=== PATIENT | female | born 1960 | race Two or more races ===

== ENCOUNTER 2017-04-28 02:41 | Emergency (ER) | payer OTHER ==
[~2017-04-28] VITALS: Ht 165.1 cm; Wt 59.0 kg
[2017-04-28 02:50] VITALS: BP 151/85
--- NOTE | 2017-04-28 03:34 | Emergency Room Report ---
History of Present Illness General Chief Complaint: Multiple Trauma/Fall Source: Medical Record, EMS Present Illness HPI Is a 57-year-old female with a history of CVA with left-sided weakness. Patient is normally bed bound. Patient was found on the floor. No obvious trauma. Patient any to be evaluated. Unable to get history from the patient. History is from the care home. Allergies: Coded Allergies: No Known Allergies (Unverified , 04/28/17) Patient History Past Medical History: see triage record, old chart reviewed, HTN, CVA/TIA Past Surgical History: other Pertinent Family History: none Social History: Denies: smoking Last Menstrual Period: NONE Now: No Immunizations: other Reviewed Nursing Documentation: PMH: Agreed, PSxH: Agreed Nursing Documentation-PMH Hx Hypertension: Yes - HYPERCHOLESTEROLEMIA Review of Systems Eye: Denies: blurred vision, eye pain ENT: Denies: ear pain, nose congestion, throat swelling Respiratory: Denies: cough, shortness of breath Cardiovascular: Denies: chest pain, palpitations Gastrointestinal: Denies: abdominal pain, diarrhea, nausea, vomiting Musculoskeletal: Denies: back pain, joint pain Skin: Denies: rash Neurological: Denies: headache, numbness Endocrine: Denies: increased thirst, increased urine Hematologic/Lymphatic: Denies: easy bruising All Other Systems: negative except mentioned in HPI Physical Exam Vital Signs Date Time Temp Pulse Resp B/P Pulse Ox O2 Delivery O2 Flow Rate FiO2 04/28/17 02:21 97.5 66 18 143/93 99 Room Air vitals normal Sp02 EP Interpretation: reviewed, normal General Appearance: well appearing, no apparent distress, alert Head: normocephalic, atraumatic Eyes: bilateral eye EOMI, bilateral eye PERRL ENT: hearing grossly normal, normal pharynx Neck: full range of motion, supple, no meningismus Respiratory: chest non-tender, lungs clear, normal breath sounds Cardiovascular #1: regular rate, rhythm, no murmur Gastrointestinal: normal bowel sounds, non tender, no mass, no organomegaly, no bruit, non-distended Musculoskeletal: back normal Neurologic: other - Left-sided wekness Psychiatric: mood/affect normal Skin: warm/dry Medical Decision Making Diagnostic Impression: Primary Impression: Fall Qualified Codes: W19.XXXA - Unspecified fall, initial encounter ER Course Patient with a fall. No trauma. CT negative. We'll discharge home. CT/MRI/US Diagnostic Results CT/MRI/US Diagnostic Results : Imaging Test Ordered: CT head Impression read by radiologist. Negative. Last Vital Signs Date Time Temp Pulse Resp B/P Pulse Ox O2 Delivery O2 Flow Rate FiO2 04/28/17 02:21 97.5 66 18 143/93 99 Room Air Status: improved Disposition: ER SNF Condition: Stable Additional Instructions: Fall precautions. Followup with your Dr. in 7 days. Return if worse. JOE HOLDEN M.D. Apr 28, 2017 03:34
--- NOTE | 2017-04-28 04:17 | Emergency Room Report ---
Physical Exam Vital Signs Date Time Temp Pulse Resp B/P Pulse Ox O2 Delivery O2 Flow Rate FiO2 04/28/17 02:21 97.5 66 18 143/93 99 Room Air Sp02 EP Interpretation: reviewed, normal General Appearance: well appearing, no apparent distress, alert Head: normocephalic, atraumatic Eyes: bilateral eye EOMI, bilateral eye PERRL ENT: hearing grossly normal, normal pharynx Neck: full range of motion, supple, no meningismus Respiratory: chest non-tender, lungs clear, normal breath sounds Cardiovascular #1: regular rate, rhythm, no murmur Gastrointestinal: normal bowel sounds, non tender, no mass, no organomegaly, no bruit, non-distended Musculoskeletal: back normal, other - Left-sided weakness Neurologic: alert Psychiatric: mood/affect normal Skin: warm/dry Medical Decision Making Diagnostic Impression: Primary Impression: Fall Qualified Codes: W19.XXXA - Unspecified fall, initial encounter Additional Impression: CVA (cerebral vascular accident) Qualified Codes: I63.9 - Cerebral infarction, unspecified ER Course Patient with a fall. CT scan showed multiple chronic appearing infarcts. There is some that are questionable subacute per radiologist. Labs unremarkable. Patient was just admitted to skilled nursing for infarcts. This may be secondary to seizure disorder also. I will make the patient for further workup and MRI. no TPA for patient because symptoms questionable. Also way outside of the 4.5 hours. For TPA. Lab Results Impression labs unremarkable EKG Diagnostic Results EKG Time: 04:15 Rate: normal Rhythm: NSR ST Segments: no acute changes Rhythm Strip Diag. Results Rhythm Strip Time: 04:15 EP Interpretation: yes Rate: 85 Rhythm: NSR, no PVC's, no ectopy Chest X-Ray Diagnostic Results Chest X-Ray Ordered: Yes # of Views/Limited/Complete: 1 View EP Interpretation: Yes Interpretation: no consolidation, no effusion, no pneumothorax, no acute cardiopulmonary disease Indication: Shortness of Breath Impression: No acute disease Interpreting ER Provider: Electronically signed by Grayson Chavez MD CT/MRI/US Diagnostic Results CT/MRI/US Diagnostic Results : Imaging Test Ordered: CT head Impression Read by radiologist. Grossly no bleed. Subacute/chronic appearing multifocal infarct. Last Vital Signs Date Time Temp Pulse Resp B/P Pulse Ox O2 Delivery O2 Flow Rate FiO2 04/28/17 02:21 97.5 66 18 143/93 99 Room Air Status: unchanged Disposition: XFER SHT-TRM HOSP Condition: Stable Referrals: [facility],REFERR[facility] (PCP) Patient Instructions: Fall Prevention in Hospitals, Adult Additional Instructions: Fall precautions. Followup with your Dr. in 7 days. Return if worse. GRAYSON CHAVEZ M.D. Apr 28, 2017 04:17
[2017-04-28 05:00] VITALS: BP 158/85
[2017-04-28 06:30] VITALS: BP 162/90
[2017-04-28 06:59] LABS: ALANINE AMINOTRANSFERASE 9 U/L (3-33); ALBUMIN/GLOBULIN RATIO 0.8 (1.0-2.7); ANION GAP 14 (5-15); ASPARTATE AMINO TRANSFERASE 19 U/L (5-40); BASOPHILS % (AUTO) 0.8 % (0.0-2.0); CALCIUM 9.7 mg/dL (8.6-10.2); CARBON DIOXIDE 23 mEQ/L (20-30); CHLORIDE 101 mEQ/L (98-107); CHOLESTEROL 173 mg/dL (< 200); CHOLESTEROL/HDL RATIO 3.5 (3.3-4.4); CREATININE 0.8 mg/dL (0.5-0.9); EOSINOPHILS % (AUTO) 2.2 % (0.0-3.0); GLOMERULAR FILTRATION RATE > 60 mL/min (>60); HEMOLYSIS 0; LDL CHOLESTEROL (CALC.) 106 mg/dL (60-99); LYMPHOCYTES % (AUTO) 20.7 % (20.0-45.0); MEAN CORPUSCULAR HEMOGLOBIN 27.4 PG (27.0-31.0); MEAN CORPUSCULAR HGB CONC 30.9 G/DL (32.0-36.0); MEAN CORPUSCULAR VOLUME 89 FL (80-99); MEAN PLATELET VOLUME 6.3 FL (6.5-10.1); MONOCYTES % (AUTO) 5.2 % (1.0-10.0); NEUTROPHILS % (AUTO) 71.1 % (45.0-75.0); PLATELET COUNT 326 K/UL (150-450); RED BLOOD COUNT 3.75 M/UL (4.20-5.40); RED CELL DISTRIBUTION WIDTH 13.7 % (11.6-14.8); SODIUM 138 mEQ/L (135-145); WHITE BLOOD COUNT 8.1 K/UL (4.8-10.8)
[2017-04-28 07:06] LABS: PROTHROMBIN TIME 10.7 SEC (9.30-11.50)
[2017-04-28 07:09] VITALS: BP 130/86
--- NOTE | 2017-04-28 08:33 | Diagnostic Imaging Report ---
Indication: Jason breath Technique: Single AP view of the chest. Findings: Comparison: None. Is suggestion of small linear density in one or more small calcified nodular densities in the left lung apex. Right lung clear. The bones and extra pulmonary soft tissues, cardiomediastinal silhouette, pulmonary vasculature, and pleural surfaces are unremarkable. IMPRESSION: Suggestion of parenchymal scarring and calcified granulomas left lung apex Otherwise negative.
--- NOTE | 2017-04-28 08:41 | Diagnostic Imaging Report ---
Indications: Head trauma, altered level of consciousness Technique: Continuous helical CT imaging of the brain was performed with automatic exposure control on a Siemens sensation [address] scanner. Axial and coronal images were reconstructed at 5 mm slice thickness and interval. CTDI volume(s): 70 mGy Total DLP: 1435 mGy-cm Findings: Comparison: None Images degraded by motion. Mild low attenuation is present in the bilateral periventricular white matter. Multiple peripherally based foci of low attenuation/parenchymal loss are present, including both cerebellar hemispheres right greater than left, left temporal occipital junction region, high lateral aspect left parietal lobe, high posterior lateral aspect right parietal lobe. Small circumscribed focus of low attenuation/parenchymal loss right thalamus. Ventricles, cisterns, and sulci are diffusely prominent. No evidence of mass or hemorrhage, mass effect, midline shift, hydrocephalus, or increased intracranial pressure. Bone window images are unremarkable. Visualized paranasal sinuses and mastoid air cells are clear. IMPRESSION: No evidence of acute injury or other acute intracranial pathology Multiple old infarcts versus chronic encephalomalacia from prior insults. Chronic microvascular ischemic changes bilateral cerebral periventricular white matter. Atrophy, prominent for age This correlates with preliminary report generated overnight by [employer]. The CT scanner at [facility] is accredited by the [employer] and the scans are performed using protocols designed to limit radiation exposure to as low as reasonably achievable to attain images of sufficient resolution adequate for diagnostic evaluation.
[2017-04-28 08:51] VITALS: BP 143/85
[2017-04-28 09:16] VITALS: BP 150/85
== END 2017-04-28 09:20 | disposition short-term general hospital (02) ==
LOC: EDBD 02:41 → EMR 03:49 → EDBEDREQ 04:15 → EMR 09:20
DX: I63.9 Cerebral infarction, unspecified (principal); I69.354 Hemiplegia and hemiparesis following cerebral infarction affecting left non-dominant side; I10 Essential (primary) hypertension; W19.XXXA Unspecified fall, initial encounter; Y92.129 Unspecified place in nursing home as the place of occurrence of the external cause; G31.9 Degenerative disease of nervous system, unspecified; Z74.01 Bed confinement status
CPT/HCPCS: 36415; 70450; 71010; 80053; 80061; 85025; 85610; 85730; 93005

== ENCOUNTER 2017-05-19 11:29 | Emergency (ER) | payer OTHER ==
[~2017-05-19] VITALS: Ht 165.1 cm; Wt 59.0 kg
[2017-05-19 12:18] VITALS: BP 153/90
[2017-05-19] MEDS ORDERED: LORazepam Inj 2mg/ml 1ml ONE (13:36)
[2017-05-19] MEDS ORDERED: LORazepam Inj 2mg/ml 1ml IM ONE (13:45)
[2017-05-19 14:10] VITALS: BP 148/88
[2017-05-19 14:11] VITALS: BP 148/88
--- NOTE | 2017-05-19 15:24 | Emergency Room Report ---
History of Present Illness General Chief Complaint: General Complaint Present Illness HPI 57-year-old female presents to ED for G-tube placement. Patient pulled of G- tube at [facility] today. Nursing staff placed a La catheter in the G- tube site. Patient upon arrival showing no signs of distress. No nausea or vomiting. No other aggravating or leading factors. Denies any other associated symptoms Allergies: Coded Allergies: No Known Allergies (Unverified , 04/28/17) Patient History Past Medical History: HTN, CVA/TIA Past Surgical History: other - gtube Pertinent Family History: none Social History: Denies: alcohol use, drug use, smoking Now: No Immunizations: UTD Reviewed Nursing Documentation: PMH: Agreed, PSxH: Agreed Nursing Documentation-PMH Hx Cardiac Problems: Yes Hx Hypertension: Yes Hx Cerebrovascular Accident: Yes Review of Systems All Other Systems: negative except mentioned in HPI Physical Exam Vital Signs Date Time Temp Pulse Resp B/P Pulse Ox O2 Delivery O2 Flow Rate FiO2 05/19/17 11:21 97.9 67 16 135/80 98 Room Air Sp02 EP Interpretation: reviewed, normal General Appearance: no apparent distress, alert, GCS 15, non-toxic Head: normocephalic Eyes: bilateral eye PERRL, bilateral eye normal inspection ENT: normal ENT inspection Neck: normal inspection Respiratory: chest non-tender, lungs clear, normal breath sounds, speaking full sentences Cardiovascular #1: regular rate, rhythm, no edema Gastrointestinal: normal bowel sounds, non tender, soft, non-distended, no guarding, no rebound, other - Gtube site C/D/I Rectal: deferred Genitourinary: no CVA tenderness Musculoskeletal: normal inspection Neurologic: alert, oriented x3, responsive, motor strength/tone normal, sensory intact, speech normal Psychiatric: normal inspection Skin: normal inspection Lymphatic: normal inspection Procedures Additional Procedure Procedure Narrative G-tube placement Patient placed on stretcher. Old G-tube is removed by deflating the balloon using syringe. G-tube site is inspected with no contraindications to G-tube placement. 18 F G-tube slowly inserted until resistance is met; G-tube balloon is slowly filled with 20 mL of normal saline and slowly retracted back until resistance is met. G-tube placement is confirmed with KUB study using Gastrografin Medical Decision Making Diagnostic Impression: Primary Impression: Malfunction of percutaneous endoscopic gastrostomy (PEG) tube ER Course Hospital Course 57-year-old female presents to ED for G-tube placement. Pulled out G-tube at [facility] Clinical course Patient placed on stretcher. After initial history and physical I replaced G- tube and inflate the balloon. G-tube placement confirmed with KUB study. Patient remained stable without any signs of distress. snf called and patient subsequently discharged back to facility. Dr Dalton made aware that G-tube was successfully replaced and patient return to facility Diagnosis - malfunction of G tube stable and discharged back to facility. Followup with PMD. Return to ED if symptoms recur or worsen Other X-Ray Diagnostic Results Other X-Ray Diagnostic Results : X-Ray ordered: KUB # of Views/Limited Vs Complete: 1 View Indication: Other - gtube placement EP Interpretation: Yes Interpretation: nonspecific bowel gas, no sbo, other - gtube in place. no extravsation Impression: Other - gtube in palce Interpreting ER Provider: Electronically signed by Hosea Pineda MD Last Vital Signs Date Time Temp Pulse Resp B/P Pulse Ox O2 Delivery O2 Flow Rate FiO2 05/19/17 14:11 98.1 71 19 148/88 99 Room Air Status: improved Disposition: XFER SNF Condition: Stable Patient Instructions: Gastrostomy Tube Replacement, Care After HOSEA PINEDA M.D. May 19, 2017 15:24
--- NOTE | 2017-05-20 08:37 | Diagnostic Imaging Report ---
TECHNIQUE: Frontal supine radiograph of the abdomen after administration of water-soluble contrast through the existing G-tube to evaluate positioning. COMPARISON: No prior study is available for comparison. FINDINGS: Contrast is seen within the stomach. There is no evidence of extraluminal contrast. Gastrostomy tube noted in the left upper abdomen. There is no bowel gas dilatation to suggest obstruction. Large amount of retained stool is noted throughout the colon. IMPRESSION: 1. Gastrostomy tube is in the appropriate position. No evidence of extraluminal contrast extravasation. 2. Large amount of retained colonic stool reflecting constipation.
== END 2017-05-19 14:16 ==
LOC: EDBD 11:29 → EMR 11:43
DX: K94.23 Gastrostomy malfunction (principal); I10 Essential (primary) hypertension; Z86.73 Personal history of transient ischemic attack (TIA), and cerebral infarction without residual deficits
CPT/HCPCS: 43760; 74000; 96372; 99284; Q9963

== ENCOUNTER 2017-05-29 23:40 | Emergency (ER) | payer OTHER ==
[~2017-05-29] VITALS: Ht 172.7 cm; Wt 58.5 kg
[2017-05-29] MEDS ORDERED: TRAMADOL HCL50 MG ORAL (23:58)
[2017-05-29] MEDS ORDERED: LEVETIRACE100 MG/1 M GT (23:58)
[2017-05-29] MEDS ORDERED: SENNA S TABLET1 EAC1 PO (23:58)
[2017-05-29] MEDS ORDERED: QUETIAPINE FUMA25 MG ORAL (23:58)
[2017-05-29] MEDS ORDERED: ZOFRAN4 M3 ORAL (23:58)
[2017-05-29] MEDS ORDERED: ATORVASTATIN CA20 MG ORAL (23:58)
[2017-05-29] MEDS ORDERED: ATIVAN1 MG ORAL (23:58)
[2017-05-29] MEDS ORDERED: MULTIVITAMINS1 EAC8 ORAL (23:58)
[2017-05-29] MEDS ORDERED: ACETAMINOPHEN325 M1 ORAL (23:58)
[2017-05-30 01:22] LABS: APPEARANCE,URINE SLIGHTLY CLOUDY; KETONES,URINE NEGATIVE (NEGATIVE); LEUKOCYTE ESTERASE ,URINE 3+ (NEGATIVE); NITRITE,URINE NEGATIVE (NEGATIVE); PH,URINE 9 (4.5-8.0); PROTEIN,URINE 2+ (NEGATIVE); UROBILINOGEN,URINE NORMAL MG/DL (0.0-1.0)
[2017-05-30 01:45] LABS: PROTHROMBIN TIME 10.1 SEC (9.30-11.50)
[2017-05-30 01:46] LABS: EOSINOPHILS % (AUTO) 0.8 % (0.0-3.0); LYMPHOCYTES % (AUTO) 13.9 % (20.0-45.0); MEAN CORPUSCULAR HGB CONC 30.1 G/DL (32.0-36.0); MEAN CORPUSCULAR VOLUME 83 FL (80-99); MEAN PLATELET VOLUME 6.4 FL (6.5-10.1); MONOCYTES % (AUTO) 5.2 % (1.0-10.0); NEUTROPHILS % (AUTO) 79.2 % (45.0-75.0); PLATELET COUNT 506 K/UL (150-450); RED BLOOD COUNT 3.49 M/UL (4.20-5.40); RED CELL DISTRIBUTION WIDTH 14.4 % (11.6-14.8); WHITE BLOOD COUNT 9.8 K/UL (4.8-10.8)
[2017-05-30 01:47] LABS: AMMONIA 19 umol/L (11-51)
[2017-05-30 01:48] LABS: TROPONIN I < 0.30 ng/mL (<=0.30)
[2017-05-30 01:51] LABS: BACTERIA,URINE MODERATE /HPF; SQUAMOUS EPITHELIAL CELL,UR FEW /LPF (NONE/OCC)
[2017-05-30 01:52] LABS: AMORPHOUS SEDIMENT,UR MODERATE /LPF
[2017-05-30 01:55] LABS: ACETAMINOPHEN < 10 ug/mL (10-30); ALANINE AMINOTRANSFERASE 10 U/L (3-33); ALBUMIN/GLOBULIN RATIO 0.9 (1.0-2.7); ANION GAP 10 (5-15); ASPARTATE AMINO TRANSFERASE 20 U/L (5-40); CALCIUM 9.9 mg/dL (8.6-10.2); CARBON DIOXIDE 30 mEQ/L (20-30); CHLORIDE 102 mEQ/L (98-107); CREATININE 0.8 mg/dL (0.5-0.9); GLOMERULAR FILTRATION RATE > 60 mL/min (>60); HEMOLYSIS 4; POTASSIUM 4.2 mEQ/L (3.4-4.9); SODIUM 142 mEQ/L (135-145)
[2017-05-30] MEDS ORDERED: cefTRIAXone 1 GM in NS 55 ML IVPB ONE (02:00)
--- NOTE | 2017-05-30 02:17 | Emergency Room Report ---
History of Present Illness General Chief Complaint: Altered Mental Status Source: EMS Present Illness HPI Patient presents with decreased level of mentation. Her baseline is a [place] Coma Scale of 12. 2 sent in by the residential facility. She is unable to communicate because of prior strokes. She does look it the patient is talking to her but doesn't seem to comprehend. The patient is fed via gastrostomy tube. There is a history of breast CA. The patient has a history of seizures. She's on Keppra 500 g twice a day. There's no evidence of having seizure earlier today according to reports. She was seen post fall 04/28/17 but not admitted. 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 Review of Systems All Other Systems: limited Physical Exam Vital Signs Date Time Temp Pulse Resp B/P Pulse Ox O2 Delivery O2 Flow Rate FiO2 05/29/17 23:40 97.9 80 18 148/84 100 Room Air Sp02 EP Interpretation: reviewed, normal General Appearance: no apparent distress, Chronically Ill Head: normocephalic Eyes: bilateral eye PERRL ENT: moist mucus membranes Neck: supple Respiratory: chest non-tender, lungs clear, normal breath sounds Cardiovascular #1: regular rate, rhythm Cardiovascular #2: 2+ radial (R) Gastrointestinal: normal bowel sounds, other - g tube Genitourinary: other - mcgowan Musculoskeletal: other - some atrophy bilat Neurologic: responsive, sensory intact, aphasia, motor weakness - R sided, Babinski, other - some cogwheeling, L side. Able to lift arm with greater strength than R - facial assymmetry Psychiatric: other - occasionally smiles when spoken to Reflexes: 4+ knee (R), 2+ knee (L) Skin: normal inspection, warm/dry Medical Decision Making Diagnostic Impression: Primary Impression: Altered mental status Qualified Codes: R41.82 - Altered mental status, unspecified Additional Impressions: UTI (urinary tract infection) Qualified Codes: N30.00 - Acute cystitis without hematuria Status post multiple strokes Hypothyroid Qualified Codes: E03.9 - Hypothyroidism, unspecified ER Course Patient presents with altered mental status. She has obvious signs of prior strokes. This is a complicated patient. Differential includes new stroke, bleed, mass, electrolyte abnormalities, UTI, other occult infection, seizure amongst others. Exam is also consistent with early Parkinson's (superimposed on strokes.) Evaluation will be with EKG, labs, chest x-ray, CT of the head. The patient will be given gentle IV hydration at this time. She does not appear septic or toxic. Unfortunately there were no prior records (except prior visit) aside from what the residential facility sent with the patient. Labs are significant for UTI, elevated TSH. CT head shows multiple infarcts. There is no evidence of an acute injury however if they're suspicion of this an MRI is suggested a. The patient was given IV antibiotics. A some the patient's fluctuating mental status the patient is treated for observation to telemetry bed. Discussed with Dr. Rojas who accepts patient. Laboratory Tests Test 05/30/17 00:11 05/30/17 00:57 Prothrombin Time 10.1 SEC (9.30-11.50) Prothrombin Time INR 1.0 (0.9-1.1) PTT 24 SEC (23-33) White Blood Count 9.8 K/UL (4.8-10.8) Red Blood Count 3.49 M/UL (4.20-5.40) L Hemoglobin 8.7 G/DL (12.0-16.0) L Hematocrit 29.0 % (37.0-47.0) L Mean Corpuscular Volume 83 FL (80-99) Mean Corpuscular Hemoglobin 25.0 PG (27.0-31.0) L Mean Corpuscular Hemoglobin Concent 30.1 G/DL (32.0-36.0) L Red Cell Distribution Width 14.4 % (11.6-14.8) Platelet Count 506 K/UL (150-450) H Mean Platelet Volume 6.4 FL (6.5-10.1) L Neutrophils (%) (Auto) 79.2 % (45.0-75.0) H Lymphocytes (%) (Auto) 13.9 % (20.0-45.0) L Monocytes (%) (Auto) 5.2 % (1.0-10.0) Eosinophils (%) (Auto) 0.8 % (0.0-3.0) Basophils (%) (Auto) 1.0 % (0.0-2.0) Urine Color Pale yellow Urine Appearance Slightly cloudy Urine pH 9 (4.5-8.0) Urine Specific [place] 1.015 (1.005-1.035) Urine Protein 2+ (NEGATIVE) H Urine Glucose (UA) Negative (NEGATIVE) Urine Ketones Negative (NEGATIVE) Urine Occult Blood 4+ (NEGATIVE) H Urine Nitrite Negative (NEGATIVE) Urine Bilirubin Negative (NEGATIVE) Urine Urobilinogen Normal MG/DL (0.0-1.0) Urine Leukocyte Esterase 3+ (NEGATIVE) H Urine RBC 5-10 /HPF (0 - 2) H Urine WBC 10-15 /HPF (0 - 2) H Urine Squamous Epithelial Cells Few /LPF (NONE/OCC) Urine Amorphous Sediment Moderate /LPF (NONE) H Urine Bacteria Moderate /HPF (NONE) H Sodium Level 142 mEQ/L (135-145) Potassium Level 4.2 mEQ/L (3.4-4.9) Chloride Level 102 mEQ/L (98-107) Carbon Dioxide Level 30 mEQ/L (20-30) Anion Gap 10 (5-15) Blood Urea Nitrogen 20 mg/dL (7-23) Creatinine 0.8 mg/dL (0.5-0.9) Estimate Glomerular Filtration Rate > 60 mL/min (>60) Glucose Level 100 mg/dL (74-106) Lactic Acid Level 1.70 mmol/L (0.66-2.22) Calcium Level 9.9 mg/dL (8.6-10.2) Total Bilirubin < 0.2 mg/dL (0.0-1.2) Aspartate Amino Transferase (AST) 20 U/L (5-40) Alanine Aminotransferase (ALT) 10 U/L (3-33) Alkaline Phosphatase 104 U/L (35-104) Ammonia 19 umol/L (11-51) Total Creatine Kinase 124 U/L (26-140) Troponin I < 0.30 ng/mL (<=0.30) Pro-B-Type Natriuretic Peptide 382 pg/mL (0-125) H Total Protein 8.0 g/dL (6.6-8.7) Albumin 3.8 g/dL (3.5-5.2) Globulin 4.2 g/dL Albumin/Globulin Ratio 0.9 (1.0-2.7) L Thyroid Stimulating Hormone (TSH) 5.050 uIU/mL (0.300-4.500) Salicylates Level < 1 mg/dL (10-30) L Urine Opiates Screen Negative (NEGATIVE) Acetaminophen Level < 10 ug/mL (10-30) L Urine Barbiturates Screen Negative (NEGATIVE) Phencyclidine (PCP) Screen Negative (NEGATIVE) Urine Amphetamines Screen Negative (NEGATIVE) Urine Benzodiazepines Screen Negative (NEGATIVE) Urine Cocaine Screen Negative (NEGATIVE) Urine Marijuana (THC) Screen Negative (NEGATIVE) EKG Diagnostic Results Rate: normal Rhythm: NSR ST Segments: no acute changes - Short NM Rhythm Strip Diag. Results EP Interpretation: yes Rhythm: NSR, no PVC's, no ectopy Chest X-Ray Diagnostic Results Chest X-Ray Diagnostic Results : Chest X-Ray Ordered: Yes # of Views/Limited/Complete: 1 View Indication: Other EP Interpretation: Yes Interpretation: no consolidation, no effusion, no pneumothorax, no acute cardiopulmonary disease, other - atelectasis L base Impression: No acute disease Interpreting ER Provider: Electronic signature Lonnie Delgado MD CT/MRI/US Diagnostic Results CT/MRI/US Diagnostic Results : Imaging Test Ordered: head Impression Impression: Multiple old infarcts Other chronic and age-related changes, as described Negative for acute intracranial bleed or mass effect Last Vital Signs Date Time Temp Pulse Resp B/P Pulse Ox O2 Delivery O2 Flow Rate FiO2 05/30/17 04:30 99.9 78 14 110/74 100 Room Air Status: improved Disposition: XFER SHT-TRM HOSP Condition: Improved Referrals: JANIS DYKES (PCP) Lonnie Delgado M.D. May 30, 2017 02:17
[2017-05-30 02:36] VITALS: BP 148/91
[2017-05-30 03:19] VITALS: BP 110/74
[2017-05-30 04:30] VITALS: BP 110/74
--- NOTE | 2017-05-30 09:45 | Diagnostic Imaging Report ---
Indications: Altered mental status Technique: Spiral acquisitions obtained through the brain. Angled axial and coronal 5 x 5 mm slices were reconstructed. Total dose length product 1533 mGycm. CTDI vol(s) 70 mGy. Dose reduction achieved using automated exposure control Comparison: 04/28/2017 Findings: There is an old left posterior frontal/anterior parietal infarct. There is also an old left mid parietal cortical infarct, a high midline left frontal cortical infarct, an anterior midline left frontal cortical infarct, old left anterior periventricular infarct, and old peripheral infarcts in the right parietal lobe. Cortical infarct in the left posterior temporal lobe is again noted. A lacunar infarct in the right thalamus is again demonstrated. There is also encephalomalacia of the right cerebellar hemisphere consistent with old infarct. There is age-related enlargement of ventricles and extra-axial CSF spaces and extensive periventricular deep white matter chronic ischemic change. No acute hemorrhage or edema. No mass effect nor midline shift. Normal alonso-white differentiation otherwise. The calvarium is intact. Visualized orbits and sinuses are unremarkable. Impression: Multiple old infarcts Other chronic and age-related changes, as described Negative for acute intracranial bleed or mass effect The CT scanner at [facility] [place] is accredited by the [employer] and the scans are performed using protocols designed to limit radiation exposure to as low as reasonably achievable to attain images of sufficient resolution adequate for diagnostic evaluation.
--- NOTE | 2017-05-30 16:03 | Cardiology Report ---
APPROVED REPORT EKG Measurement Heart [id number] Sinus rhythm with short MN Otherwise normal ECG
--- NOTE | 2017-06-04 14:29 | Diagnostic Imaging Report ---
Indication: Chest pain Technique: One view of the chest Comparison: 04/28/2017 Findings: The patient is rotated to the left. Lungs and pleural spaces are clear. Heart size is normal. There is no significant interim change Impression: No acute process This agrees with the preliminary interpretation provided by the emergency room physician
== END 2017-05-30 04:30 | disposition short-term general hospital (02) ==
LOC: EDBD 23:40 → EMR 23:56
DX: R41.82 Altered mental status, unspecified (principal); N30.00 Acute cystitis without hematuria; E03.9 Hypothyroidism, unspecified; Z86.73 Personal history of transient ischemic attack (TIA), and cerebral infarction without residual deficits; Z80.3 Family history of malignant neoplasm of breast; Z93.1 Gastrostomy status
CPT/HCPCS: 36415; 70450; 71010; 80053; 80300; 80329; 81003; 82140; 82550; 83605; 83880; 84443; 84484; 85025; 85610; 85730; 87040; 87086; 87181; 93005; 96374; 96375; 99285; J0696

== ENCOUNTER 2017-07-31 19:07 | Inpatient (IN) | payer OTHER ==
[~2017-07-31] VITALS: Ht 172.7 cm; Wt 56.7 kg
[~2017-07-31 19:07] MED LIST: ACETAMINOPHEN325 M1 ORAL; ATIVAN1 MG ORAL; ATORVASTATIN CA20 MG ORAL; LEVETIRACE100 MG/1 M GT; MULTIVITAMINS1 EAC8 ORAL; QUETIAPINE FUMA25 MG ORAL; SENNA S TABLET1 EAC1 PO; TRAMADOL HCL50 MG ORAL; ZOFRAN4 M3 ORAL
[2017-07-31 20:30] VITALS: BP 127/81
[2017-07-31 21:06] LABS: APPEARANCE,URINE SLIGHTLY CLOUDY; KETONES,URINE NEGATIVE (NEGATIVE); LEUKOCYTE ESTERASE ,URINE 3+ (NEGATIVE); NITRITE,URINE POSITIVE (NEGATIVE); PH,URINE 8 (4.5-8.0); PROTEIN,URINE NEGATIVE (NEGATIVE); UROBILINOGEN,URINE NORMAL MG/DL (0.0-1.0)
[2017-07-31] MEDS ORDERED: cefTRIAXone 1 GM in NS 55 ML IVPB ONE (21:15)
[2017-07-31 21:17] LABS: BACTERIA,URINE FEW /HPF
--- NOTE | 2017-07-31 21:24 | Emergency Room Report ---
History of Present Illness General Chief Complaint: Pain Source: Medical Record Present Illness HPI Patient presents with complaints of increased abdominal pain fairly diffuse Patient herself has limited ability to provide history Patient has history of ovarian cancer Unknown regarding metastatic disease However upon arrival the patient was reported to have received pain medicine and appears somewhat disoriented and confused No reports of any obvious fevers Allergies: Coded Allergies: No Known Allergies (Unverified , 04/28/17) Patient History Limited by: medical condition Past Medical History: see triage record Pertinent Family History: unable to obtain Reviewed Nursing Documentation: PMH: Agreed, PSxH: Agreed Nursing Documentation-PMH Hx Cardiac Problems: Yes - NSTEMI Hx Hypertension: Yes Hx Cancer: Yes - Left ovary Hx Gastrointestinal Problems: Yes - G-tube; Reflux History Of Psychiatric Problem: Yes - Major depressive disorder; Anxiety disorder 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 Hx Seizures: Yes Review of Systems All Other Systems: limited - Other than the ones mentioned in the history of present illness all others are reviewed however they do stay limited due to the patient's mental status Physical Exam Vital Signs Date Time Temp Pulse Resp B/P (MAP) Pulse Ox O2 Delivery O2 Flow Rate FiO2 07/31/17 19:02 60 16 143/82 98 Room Air Sp02 EP Interpretation: reviewed, normal General Appearance: mild distress - appears uncomfortable Head: normocephalic, atraumatic Eyes: bilateral eye PERRL, bilateral eye EOMI ENT: dry mucus membranes Neck: supple Respiratory: crackles - bilaterally Cardiovascular #1: regular rate, rhythm, no edema Gastrointestinal: non tender, soft Genitourinary: no CVA tenderness Musculoskeletal: other - Patient appears somewhat contracted does not follow commands appears thin and frail Neurologic: responsive - Patient moves towards physical stimuli, opens eyes however was not verbal with us Skin: other - decubitus ulcers Lymphatic: no adenopathy Medical Decision Making Diagnostic Impression: Primary Impression: UTI (urinary tract infection) Additional Impression: Abdominal pain ER Course With the history exam and presentation, multiple differentials considered, including but not limited to appendicitis, gastritis, cholecystitis, diverticulitis Patient had off-and-on intractable pain Urine sample at this time does show infectious pathology and patient was provided with antibiotics at this time requires admission for further care Labs Test 07/31/17 20:15 07/31/17 21:15 08/01/17 07:50 08/02/17 05:20 Urine Color Pale yellow Urine Appearance Slightly cloudy Urine pH 8 (4.5-8.0) Urine Specific [place] 1.010 (1.005-1.035) Urine Protein Negative (NEGATIVE) Urine Glucose (UA) Negative (NEGATIVE) Urine Ketones Negative (NEGATIVE) Urine Occult Blood 3+ (NEGATIVE) Urine Nitrite Positive (NEGATIVE) Urine Bilirubin Negative (NEGATIVE) Urine Urobilinogen Normal MG/DL (0.0-1.0) Urine Leukocyte Esterase 3+ (NEGATIVE) Urine RBC 5-10 /HPF (0 - 2) Urine WBC 10-15 /HPF (0 - 2) Urine Squamous Epithelial Cells None /LPF (NONE/OCC) Urine Bacteria Few /HPF (NONE) White Blood Count 5.9 K/UL (4.8-10.8) 6.1 K/UL (4.8-10.8) 4.4 K/UL (4.8-10.8) Red Blood Count 4.94 M/UL (4.20-5.40) 4.78 M/UL (4.20-5.40) 4.60 M/UL (4.20-5.40) Hemoglobin 12.3 G/DL (12.0-16.0) 12.1 G/DL (12.0-16.0) 11.8 G/DL (12.0-16.0) Hematocrit 42.3 % (37.0-47.0) 40.2 % (37.0-47.0) 38.9 % (37.0-47.0) Mean Corpuscular Volume 86 FL (80-99) 84 FL (80-99) 84 FL (80-99) Mean Corpuscular Hemoglobin 24.9 PG (27.0-31.0) 25.3 PG (27.0-31.0) 25.6 PG (27.0-31.0) Mean Corpuscular Hemoglobin Concent 29.1 G/DL (32.0-36.0) 30.1 G/DL (32.0-36.0) 30.3 G/DL (32.0-36.0) Red Cell Distribution Width 22.5 % (11.6-14.8) 22.1 % (11.6-14.8) 22.7 % (11.6-14.8) Platelet Count 284 K/UL (150-450) 323 K/UL (150-450) 314 K/UL (150-450) Mean Platelet Volume 8.0 FL (6.5-10.1) 9.4 FL (6.5-10.1) 9.5 FL (6.5-10.1) Neutrophils (%) (Auto) 64.0 % (45.0-75.0) 78.1 % (45.0-75.0) 58.6 % (45.0-75.0) Lymphocytes (%) (Auto) 27.4 % (20.0-45.0) 12.0 % (20.0-45.0) 22.0 % (20.0-45.0) Monocytes (%) (Auto) 3.9 % (1.0-10.0) 5.2 % (1.0-10.0) 7.7 % (1.0-10.0) Eosinophils (%) (Auto) 3.3 % (0.0-3.0) 3.4 % (0.0-3.0) 10.4 % (0.0-3.0) Basophils (%) (Auto) 1.4 % (0.0-2.0) 1.3 % (0.0-2.0) 1.3 % (0.0-2.0) Sodium Level 135 MMOL/L (136-145) 134 MMOL/L (136-145) 140 MMOL/L (136-145) Potassium Level 3.7 MMOL/L (3.5-5.1) 3.7 MMOL/L (3.5-5.1) 4.3 MMOL/L (3.5-5.1) Chloride Level 99 MMOL/L (98-107) 98 MMOL/L (98-107) 104 MMOL/L (98-107) Carbon Dioxide Level 29 MMOL/L (21-32) 29 MMOL/L (21-32) 28 MMOL/L (21-32) Anion Gap 7 (5-15) 7 (5-15) 8 (5-15) Blood Urea Nitrogen 14 mg/dL (7-18) 16 mg/dL (7-18) 17 mg/dL (7-18) Creatinine 0.7 MG/DL (0.55-1.30) 0.8 MG/DL (0.55-1.30) 0.8 MG/DL (0.55-1.30) Estimat Glomerular Filtration Rate > 60 mL/min (>60) > 60 mL/min (>60) > 60 mL/min (>60) Glucose Level 80 MG/DL (74-106) 112 MG/DL (74-106) 99 MG/DL (74-106) Calcium Level 10.3 MG/DL (8.5-10.1) 10.0 MG/DL (8.5-10.1) 10.1 MG/DL (8.5-10.1) Total Bilirubin 0.3 MG/DL (0.2-1.0) 0.5 MG/DL (0.2-1.0) Aspartate Amino Transf (AST/SGOT) 17 U/L (15-37) 18 U/L (15-37) Alanine Aminotransferase (ALT/SGPT) 15 U/L (12-78) 16 U/L (12-78) Alkaline Phosphatase 95 U/L (46-116) 94 U/L (46-116) Total Protein 8.6 G/DL (6.4-8.2) 8.4 G/DL (6.4-8.2) Albumin 3.6 G/DL (3.4-5.0) 3.5 G/DL (3.4-5.0) Globulin 5.0 g/dL 4.9 g/dL Albumin/Globulin Ratio 0.7 (1.0-2.7) 0.7 (1.0-2.7) Lipase 129 U/L (73-393) Phosphorus Level 4.2 MG/DL (2.5-4.9) Magnesium Level 1.9 MG/DL (1.8-2.4) Thyroid Stimulating Hormone (TSH) 1.655 uiU/mL (0.360-3.740) Rhythm Strip Diag. Results EP Interpretation: yes Rate: 78 Rhythm: NSR, no PVC's, no ectopy Last Vital Signs Date Time Temp Pulse Resp B/P (MAP) Pulse Ox O2 Delivery O2 Flow Rate FiO2 07/31/17 19:02 60 16 143/82 98 Room Air Status: improved Disposition: PLACE IN OBSERVATION Condition: Serious Referrals: JANIS DYKES (PCP) SHARON HERNÁNDEZ D.O. Jul 31, 2017 21:24
[2017-07-31] MEDS ORDERED: traMADol 50mg tab ORAL PRN (21:45)
[2017-07-31] MEDS ORDERED: Zolpidem 5mg tab ORAL PRN (21:45)
[2017-07-31] MEDS ORDERED: Mylanta II UD 30ml ORAL PRN (21:45)
[2017-07-31] MEDS ORDERED: Morphine Sulfate 4mg/ml Inj IVP PRN (21:45)
[2017-07-31] MEDS ORDERED: Miralax 17gm pkt ORAL PRN (21:45)
[2017-07-31 22:03] LABS: BASOPHILS % (AUTO) 1.4 % (0.0-2.0); EOSINOPHILS % (AUTO) 3.3 % (0.0-3.0); LYMPHOCYTES % (AUTO) 27.4 % (20.0-45.0); MEAN CORPUSCULAR HEMOGLOBIN 24.9 PG (27.0-31.0); MEAN CORPUSCULAR HGB CONC 29.1 G/DL (32.0-36.0); MEAN CORPUSCULAR VOLUME 86 FL (80-99); MONOCYTES % (AUTO) 3.9 % (1.0-10.0); PLATELET COUNT 284 K/UL (150-450); RED BLOOD COUNT 4.94 M/UL (4.20-5.40); RED CELL DISTRIBUTION WIDTH 22.5 % (11.6-14.8); WHITE BLOOD COUNT 5.9 K/UL (4.8-10.8)
[2017-07-31 22:06] VITALS: BP 135/76
[2017-07-31 22:10] LABS: ALANINE AMINOTRANSFERASE 15 U/L (12-78); ALBUMIN/GLOBULIN RATIO 0.7 (1.0-2.7); ANION GAP 7 (5-15); ASPARTATE AMINO TRANSFERASE 17 U/L (15-37); CALCIUM 10.3 MG/DL (8.5-10.1); CARBON DIOXIDE 29 MMOL/L (21-32); CHLORIDE 99 MMOL/L (98-107); CREATININE 0.7 MG/DL (0.55-1.30); GLOMERULAR FILTRATION RATE > 60 mL/min (>60); LIPASE 129 U/L (73-393); POTASSIUM 3.7 MMOL/L (3.5-5.1); SODIUM 135 MMOL/L (136-145); TOTAL PROTEIN 8.6 G/DL (6.4-8.2)
[2017-07-31] MEDS ORDERED: MIRTAZAPINE7.5 MG ORAL (22:28)
[2017-07-31] MEDS ORDERED: NORCO 5-325 TA1 EACH ORAL (22:28)
[2017-08-01 00:26] VITALS: BP 145/93
[2017-08-01] MEDS ORDERED: Zosyn 3.375gm inj ONE ×2 (01:01→06:12)
[2017-08-01] MEDS: Piperacillin/Tazobactam 3.375 GM in NS 110 ML IVPB SCH ×4 (01:07→21:43)
[2017-08-01] MEDS: Morphine Sulfate 2mg/ml Inj IVP PRN (01:18)
[2017-08-01] MEDS: LORazepam Inj 2mg/ml 1ml IV PRN (05:01)
[2017-08-01 08:25] LABS: BASOPHILS % (AUTO) 1.3 % (0.0-2.0); EOSINOPHILS % (AUTO) 3.4 % (0.0-3.0); MEAN CORPUSCULAR HEMOGLOBIN 25.3 PG (27.0-31.0); MEAN CORPUSCULAR HGB CONC 30.1 G/DL (32.0-36.0); MEAN CORPUSCULAR VOLUME 84 FL (80-99); MEAN PLATELET VOLUME 9.4 FL (6.5-10.1); MONOCYTES % (AUTO) 5.2 % (1.0-10.0); NEUTROPHILS % (AUTO) 78.1 % (45.0-75.0); PLATELET COUNT 323 K/UL (150-450); RED BLOOD COUNT 4.78 M/UL (4.20-5.40); RED CELL DISTRIBUTION WIDTH 22.1 % (11.6-14.8); WHITE BLOOD COUNT 6.1 K/UL (4.8-10.8)
[2017-08-01] MEDS: levETIRAcetam 500mg/5ml Liquid GT SCH ×2 (08:27→17:23)
[2017-08-01] MEDS: Heparin 5000 units/ml inj SUBQ SCH ×2 (08:34→21:15)
[2017-08-01 09:00] VITALS: BP 147/93
[2017-08-01 09:16] LABS: ALANINE AMINOTRANSFERASE 16 U/L (12-78); ALBUMIN/GLOBULIN RATIO 0.7 (1.0-2.7); ANION GAP 7 (5-15); ASPARTATE AMINO TRANSFERASE 18 U/L (15-37); CARBON DIOXIDE 29 MMOL/L (21-32); CHLORIDE 98 MMOL/L (98-107); CREATININE 0.8 MG/DL (0.55-1.30); GLOMERULAR FILTRATION RATE > 60 mL/min (>60); POTASSIUM 3.7 MMOL/L (3.5-5.1); SODIUM 134 MMOL/L (136-145); THYROID STIMULATING HORMONE 1.655 uiU/mL (0.360-3.740); TOTAL PROTEIN 8.4 G/DL (6.4-8.2)
[2017-08-01 09:36] LABS: MAGNESIUM 1.9 MG/DL (1.8-2.4); PHOSPHORUS 4.2 MG/DL (2.5-4.9)
[2017-08-01 12:00] VITALS: BP 129/78
--- NOTE | 2017-08-01 15:05 | Consultation ---
History of Present Illness General Date patient seen: Aug 01, 2017 Chief Complaint: Pain Present Illness Allergies: Coded Allergies: No Known Allergies (Unverified , 04/28/17) Medication History Scheduled Atorvastatin Calcium* (Atorvastatin Calcium*), 20 MG ORAL BEDTIME, (Reported) Levetiracetam* (Levetiracetam*), 500 MG GT BID, (Reported) Lorazepam* (Ativan*), 1 MG ORAL Q4HR, (Reported) Mirtazapine* (Mirtazapine*), 7.5 MG ORAL BEDTIME, (Reported) Multivitamin With Minerals (Multivitamins With Minerals*), 1 TAB ORAL DAILY, ( Reported) Quetiapine Fumarate* (Seroquel*), 50 MG ORAL DAILY, (Reported) Scheduled PRN Acetaminophen* (Acetaminophen 325MG Tablet*), 325 MG ORAL Q4H PRN for Mild Pain (Pain Scale 1-3), (Reported) Hydrocodone Bit/Acetaminophen 5-325* ([place] 5-325*), 1 TAB ORAL Q8HR PRN for For Pain, (Reported) Ondansetron* (Zofran*), 4 MG ORAL Q4HR PRN for Nausea & Vomiting, (Reported) Tramadol Hcl* (Ultram*), 50 MG ORAL Q6H PRN for For Pain, (Reported) Miscellaneous Medications Sennosides/Docusate Sodium (Senna S Tablet), 1 EACH PO, (Reported) Patient History Healthcare decision maker Resuscitation status Full Code Advanced Directive on File Physical Exam Last 24 Hour Vital Signs Date Time Temp Pulse Resp B/P (MAP) Pulse Ox O2 Delivery O2 Flow Rate FiO2 08/01/17 12:00 98.2 57 18 129/78 100 Room Air 08/01/17 09:00 98.2 70 19 147/93 97 Room Air 08/01/17 00:26 97.7 67 20 145/93 98 Room Air 08/01/17 00:10 69 15 150/78 99 Room Air 07/31/17 22:06 98.0 81 16 135/76 98 Room Air 07/31/17 20:30 98.0 72 16 127/81 98 Room Air 07/31/17 19:02 60 16 143/82 98 Room Air Laboratory Tests Test 07/31/17 20:15 07/31/17 21:15 08/01/17 07:50 Urine Color Pale yellow Urine Appearance Slightly cloudy Urine pH 8 (4.5-8.0) Urine Specific [place] 1.010 (1.005-1.035) Urine Protein Negative (NEGATIVE) Urine Glucose (UA) Negative (NEGATIVE) Urine Ketones Negative (NEGATIVE) Urine Occult Blood 3+ (NEGATIVE) H Urine Nitrite Positive (NEGATIVE) H Urine Bilirubin Negative (NEGATIVE) Urine Urobilinogen Normal MG/DL (0.0-1.0) Urine Leukocyte Esterase 3+ (NEGATIVE) H Urine RBC 5-10 /HPF (0 - 2) H Urine WBC 10-15 /HPF (0 - 2) H Urine Squamous Epithelial Cells None /LPF (NONE/OCC) Urine Bacteria Few /HPF (NONE) White Blood Count 5.9 K/UL (4.8-10.8) 6.1 K/UL (4.8-10.8) Red Blood Count 4.94 M/UL (4.20-5.40) 4.78 M/UL (4.20-5.40) Hemoglobin 12.3 G/DL (12.0-16.0) 12.1 G/DL (12.0-16.0) Hematocrit 42.3 % (37.0-47.0) 40.2 % (37.0-47.0) Mean Corpuscular Volume 86 FL (80-99) 84 FL (80-99) Mean Corpuscular Hemoglobin 24.9 PG (27.0-31.0) L 25.3 PG (27.0-31.0) L Mean Corpuscular Hemoglobin Concent 29.1 G/DL (32.0-36.0) L 30.1 G/DL (32.0-36.0) L Red Cell Distribution Width 22.5 % (11.6-14.8) H 22.1 % (11.6-14.8) H Platelet Count 284 K/UL (150-450) 323 K/UL (150-450) Mean Platelet Volume 8.0 FL (6.5-10.1) 9.4 FL (6.5-10.1) Neutrophils (%) (Auto) 64.0 % (45.0-75.0) 78.1 % (45.0-75.0) H Lymphocytes (%) (Auto) 27.4 % (20.0-45.0) 12.0 % (20.0-45.0) L Monocytes (%) (Auto) 3.9 % (1.0-10.0) 5.2 % (1.0-10.0) Eosinophils (%) (Auto) 3.3 % (0.0-3.0) H 3.4 % (0.0-3.0) H Basophils (%) (Auto) 1.4 % (0.0-2.0) 1.3 % (0.0-2.0) Sodium Level 135 MMOL/L (136-145) L 134 MMOL/L (136-145) L Potassium Level 3.7 MMOL/L (3.5-5.1) 3.7 MMOL/L (3.5-5.1) Chloride Level 99 MMOL/L (98-107) 98 MMOL/L (98-107) Carbon Dioxide Level 29 MMOL/L (21-32) 29 MMOL/L (21-32) Anion Gap 7 (5-15) 7 (5-15) Blood Urea Nitrogen 14 mg/dL (7-18) 16 mg/dL (7-18) Creatinine 0.7 MG/DL (0.55-1.30) 0.8 MG/DL (0.55-1.30) Estimat Glomerular Filtration Rate > 60 mL/min (>60) > 60 mL/min (>60) Glucose Level 80 MG/DL (74-106) 112 MG/DL (74-106) H Calcium Level 10.3 MG/DL (8.5-10.1) H 10.0 MG/DL (8.5-10.1) Total Bilirubin 0.3 MG/DL (0.2-1.0) 0.5 MG/DL (0.2-1.0) Aspartate Amino Transf (AST/SGOT) 17 U/L (15-37) 18 U/L (15-37) Alanine Aminotransferase (ALT/SGPT) 15 U/L (12-78) 16 U/L (12-78) Alkaline Phosphatase 95 U/L (46-116) 94 U/L (46-116) Total Protein 8.6 G/DL (6.4-8.2) H 8.4 G/DL (6.4-8.2) H Albumin 3.6 G/DL (3.4-5.0) 3.5 G/DL (3.4-5.0) Globulin 5.0 g/dL 4.9 g/dL Albumin/Globulin Ratio 0.7 (1.0-2.7) L 0.7 (1.0-2.7) L Lipase 129 U/L (73-393) Phosphorus Level 4.2 MG/DL (2.5-4.9) Magnesium Level 1.9 MG/DL (1.8-2.4) Thyroid Stimulating Hormone (TSH) 1.655 uiU/mL (0.360-3.740) Height (Feet): 5 Height (Inches): 8.00 Weight (Pounds): 125 Medications Current Medications Medications (Trade) Dose Ordered Sig/Kendy Route PRN Reason Start Time Stop Time Status Last Admin Dose Admin Acetaminophen (Tylenol) 650 mg Q4H PRN ORAL fever 07/31/17 21:45 08/30/17 21:44 Al Hydroxide/Mg Hydroxide (Mylanta II) 30 ml Q6H PRN ORAL dyspepsia 07/31/17 21:45 08/30/17 21:44 Dextrose (Dextrose 50%) STAT PRN IV Hypoglycemia 07/31/17 21:45 08/30/17 21:44 Heparin Sodium (Porcine) (Heparin 5000 units/ml) 5,000 units EVERY 12 HOURS SUBQ 08/01/17 09:00 08/31/17 08:59 08/01/17 08:34 Levetiracetam (Keppra) 500 mg BID GT 08/01/17 09:00 08/31/17 08:59 08/01/17 08:27 Lorazepam (Ativan 2mg/ml 1ml) 0.5 mg Q4H PRN IV For Anxiety 07/31/17 21:45 08/07/17 21:44 08/01/17 05:01 Morphine Sulfate (Morphine Sulfate) 2 mg Q4H PRN IVP For Pain 4-6 07/31/17 21:45 08/07/17 21:44 08/01/17 01:18 Morphine Sulfate (Morphine Sulfate) 4 mg Q4H PRN IVP For Pain 7-10 07/31/17 21:45 08/07/17 21:44 Ondansetron HCl (Zofran) 4 mg Q4H PRN ORAL Nausea & Vomiting 07/31/17 21:45 08/30/17 21:44 Ondansetron HCl (Zofran) 4 mg Q6H PRN IVP Nausea & Vomiting 07/31/17 21:45 08/30/17 21:44 Piperacillin Sod/ Tazobactam Sod 3.375 gm/Sodium Chloride 110 ml @ 27.5 mls/hr EVERY 8 HOURS IVPB 08/01/17 00:00 08/08/17 00:00 08/01/17 14:44 Polyethylene Glycol (Miralax) 17 gm HSPRN PRN ORAL Constipation 07/31/17 21:45 08/30/17 21:44 Quetiapine Fumarate (SEROquel) 50 mg DAILY ORAL 08/01/17 09:00 08/31/17 08:59 08/01/17 08:27 Tramadol HCl (Ultram) 50 mg Q6H PRN ORAL For Moderate Pain 07/31/17 21:45 08/07/17 21:44 Zolpidem Tartrate (Ambien) 5 mg HSPRN PRN ORAL Insomnia 07/31/17 21:45 08/07/17 21:44 Assessment/Plan Assessment/Plan (1) Abdominal pain (2) Peg tube malfunction (3) H/O CVA (4) Thalmic pain syndrome seen dictated. KYLEE PUENTE Aug 01, 2017 15:05
--- NOTE | 2017-08-01 17:55 | GI Initial Consult Note ---
History of Present Illness General Date patient seen: Aug 01, 2017 Time patient seen: 15:00 Reason for Hospitalization: ABDOMINAL PAIN Referring physician: JANIS DYKES Reason for Consultation: ABDOMINAL PAIN Present Illness HPI 57 year old female patient admitted to [place] for reports of abdominal pain and thus GI was consulted. ROS limited, patient has history of right sided hemiplegia and is non verbal. Pt seen on floor, awake alert NAD with no active s/sx of N/V/D. Currently running GTFs, site assessed C/D/I. She presents today normal H&H, no leukocytosis. Per outside medical records, patient has history of. * Malignant neoplasm of the left ovary * ovarian cysts * generalized muscle weakness * major depressive disorder * anxiety disorder * epilepsy * insomnia * HTN * GERD Home Meds Reported Medications Hydrocodone Bit/Acetaminophen 5-325* ([place] 5-325*) 1 Each Tablet, 1 TAB ORAL Q8HR Y for For Pain, #10 TAB 0 Refills 07/31/17 Mirtazapine* (MIRTAZAPINE*) 7.5 Mg Tablet, 7.5 MG ORAL BEDTIME, TAB 07/31/17 Ondansetron* (ZOFRAN*) 4 Mg Tablet, 4 MG ORAL Q4HR Y for Nausea & Vomiting, TAB 05/29/17 Tramadol Hcl* (ULTRAM*) 50 Mg Tablet, 50 MG ORAL Q6H Y for For Pain, #30 TAB 0 Refills 05/29/17 Quetiapine Fumarate* (SEROQUEL*) 25 Mg Tablet, 50 MG ORAL DAILY, TAB 05/29/17 Sennosides/Docusate Sodium (SENNA S TABLET) 1 Each Tablet, 1 EACH PO, TAB 05/29/17 Multivitamin With Minerals (MULTIVITAMINS WITH MINERALS*) 1 Each Tablet, 1 TAB ORAL DAILY, TAB 05/29/17 Levetiracetam* (LEVETIRACETAM*) 100 Mg/1 Ml Solution, 500 MG GT BID 05/29/17 Atorvastatin Calcium* (ATORVASTATIN CALCIUM*) 20 Mg Tablet, 20 MG ORAL BEDTIME, TAB 05/29/17 Lorazepam* (ATIVAN*) 1 Mg Tablet, 1 MG ORAL Q4HR, TAB 05/29/17 Acetaminophen* (ACETAMINOPHEN 325MG TABLET*) 325 Mg Tablet, 325 MG ORAL Q4H Y for Mild Pain (Pain Scale 1-3), TAB 05/29/17 Med list reviewed/reconciled: Yes Allergies: Coded Allergies: No Known Allergies (Unverified , 04/28/17) Patient History Limited by: medical condition History Provided By: Medical Record PMH Narrative Hx Cardiac Problems: Yes - NSTEMI Hx Hypertension: Yes Hx Cancer: Yes - Left ovary Hx Gastrointestinal Problems: Yes - G-tube; Reflux History Of Psychiatric Problem: Yes - Major depressive disorder; Anxiety disorder 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 Hx Seizures: Yes Social History: Denies: smoking, alcohol use, drug use, other Review of Systems All Other Systems: limited Physical Exam Vital Signs Date Time Temp Pulse Resp B/P (MAP) Pulse Ox O2 Delivery O2 Flow Rate FiO2 07/31/17 19:02 60 16 143/82 98 Room Air 07/31/17 20:30 98.0 Sp02 EP Interpretation: reviewed Labs Laboratory Tests Test 07/31/17 20:15 07/31/17 21:15 08/01/17 07:50 Urine Color Pale yellow Urine Appearance Slightly cloudy Urine pH 8 (4.5-8.0) Urine Specific [place] 1.010 (1.005-1.035) Urine Protein Negative (NEGATIVE) Urine Glucose (UA) Negative (NEGATIVE) Urine Ketones Negative (NEGATIVE) Urine Occult Blood 3+ (NEGATIVE) H Urine Nitrite Positive (NEGATIVE) H Urine Bilirubin Negative (NEGATIVE) Urine Urobilinogen Normal MG/DL (0.0-1.0) Urine Leukocyte Esterase 3+ (NEGATIVE) H Urine RBC 5-10 /HPF (0 - 2) H Urine WBC 10-15 /HPF (0 - 2) H Urine Squamous Epithelial Cells None /LPF (NONE/OCC) Urine Bacteria Few /HPF (NONE) White Blood Count 5.9 K/UL (4.8-10.8) 6.1 K/UL (4.8-10.8) Red Blood Count 4.94 M/UL (4.20-5.40) 4.78 M/UL (4.20-5.40) Hemoglobin 12.3 G/DL (12.0-16.0) 12.1 G/DL (12.0-16.0) Hematocrit 42.3 % (37.0-47.0) 40.2 % (37.0-47.0) Mean Corpuscular Volume 86 FL (80-99) 84 FL (80-99) Mean Corpuscular Hemoglobin 24.9 PG (27.0-31.0) L 25.3 PG (27.0-31.0) L Mean Corpuscular Hemoglobin Concent 29.1 G/DL (32.0-36.0) L 30.1 G/DL (32.0-36.0) L Red Cell Distribution Width 22.5 % (11.6-14.8) H 22.1 % (11.6-14.8) H Platelet Count 284 K/UL (150-450) 323 K/UL (150-450) Mean Platelet Volume 8.0 FL (6.5-10.1) 9.4 FL (6.5-10.1) Neutrophils (%) (Auto) 64.0 % (45.0-75.0) 78.1 % (45.0-75.0) H Lymphocytes (%) (Auto) 27.4 % (20.0-45.0) 12.0 % (20.0-45.0) L Monocytes (%) (Auto) 3.9 % (1.0-10.0) 5.2 % (1.0-10.0) Eosinophils (%) (Auto) 3.3 % (0.0-3.0) H 3.4 % (0.0-3.0) H Basophils (%) (Auto) 1.4 % (0.0-2.0) 1.3 % (0.0-2.0) Sodium Level 135 MMOL/L (136-145) L 134 MMOL/L (136-145) L Potassium Level 3.7 MMOL/L (3.5-5.1) 3.7 MMOL/L (3.5-5.1) Chloride Level 99 MMOL/L (98-107) 98 MMOL/L (98-107) Carbon Dioxide Level 29 MMOL/L (21-32) 29 MMOL/L (21-32) Anion Gap 7 (5-15) 7 (5-15) Blood Urea Nitrogen 14 mg/dL (7-18) 16 mg/dL (7-18) Creatinine 0.7 MG/DL (0.55-1.30) 0.8 MG/DL (0.55-1.30) Estimat Glomerular Filtration Rate > 60 mL/min (>60) > 60 mL/min (>60) Glucose Level 80 MG/DL (74-106) 112 MG/DL (74-106) H Calcium Level 10.3 MG/DL (8.5-10.1) H 10.0 MG/DL (8.5-10.1) Total Bilirubin 0.3 MG/DL (0.2-1.0) 0.5 MG/DL (0.2-1.0) Aspartate Amino Transf (AST/SGOT) 17 U/L (15-37) 18 U/L (15-37) Alanine Aminotransferase (ALT/SGPT) 15 U/L (12-78) 16 U/L (12-78) Alkaline Phosphatase 95 U/L (46-116) 94 U/L (46-116) Total Protein 8.6 G/DL (6.4-8.2) H 8.4 G/DL (6.4-8.2) H Albumin 3.6 G/DL (3.4-5.0) 3.5 G/DL (3.4-5.0) Globulin 5.0 g/dL 4.9 g/dL Albumin/Globulin Ratio 0.7 (1.0-2.7) L 0.7 (1.0-2.7) L Lipase 129 U/L (73-393) Phosphorus Level 4.2 MG/DL (2.5-4.9) Magnesium Level 1.9 MG/DL (1.8-2.4) Thyroid Stimulating Hormone (TSH) 1.655 uiU/mL (0.360-3.740) General Appearance: alert, thin Head: normocephalic EENT: PERRL/EOMI, normal ENT inspection Neck: supple Respiratory: normal breath sounds, no respiratory distress Cardiovascular: normal rate Gastrointestinal: gt - GTFs Rectal: deferred Musculoskeletal: back normal Neurologic: normal inspection, alert, oriented x3, responsive Psychiatric: normal inspection, judgement/insight normal, memory normal Skin: normal color, no rash Lymphatic: normal inspection, no adenopathy Current Medications Current Medications Medications (Trade) Dose Ordered Sig/Kendy Route PRN Reason Start Time Stop Time Status Last Admin Dose Admin Acetaminophen (Tylenol) 650 mg Q4H PRN ORAL fever 07/31/17 21:45 08/30/17 21:44 Al Hydroxide/Mg Hydroxide (Mylanta II) 30 ml Q6H PRN ORAL dyspepsia 07/31/17 21:45 08/30/17 21:44 Dextrose (Dextrose 50%) STAT PRN IV Hypoglycemia 07/31/17 21:45 08/30/17 21:44 Heparin Sodium (Porcine) (Heparin 5000 units/ml) 5,000 units EVERY 12 HOURS SUBQ 08/01/17 09:00 08/31/17 08:59 08/01/17 08:34 Levetiracetam (Keppra) 500 mg BID GT 08/01/17 09:00 08/31/17 08:59 08/01/17 17:23 Lorazepam (Ativan 2mg/ml 1ml) 0.5 mg Q4H PRN IV For Anxiety 07/31/17 21:45 08/07/17 21:44 08/01/17 05:01 Morphine Sulfate (Morphine Sulfate) 2 mg Q4H PRN IVP For Pain 4-6 07/31/17 21:45 08/07/17 21:44 08/01/17 01:18 Morphine Sulfate (Morphine Sulfate) 4 mg Q4H PRN IVP For Pain 7-10 07/31/17 21:45 08/07/17 21:44 Ondansetron HCl (Zofran) 4 mg Q4H PRN ORAL Nausea & Vomiting 07/31/17 21:45 08/30/17 21:44 Ondansetron HCl (Zofran) 4 mg Q6H PRN IVP Nausea & Vomiting 07/31/17 21:45 08/30/17 21:44 Piperacillin Sod/ Tazobactam Sod 3.375 gm/Sodium Chloride 110 ml @ 27.5 mls/hr EVERY 8 HOURS IVPB 08/01/17 00:00 08/08/17 00:00 08/01/17 14:44 Polyethylene Glycol (Miralax) 17 gm HSPRN PRN ORAL Constipation 07/31/17 21:45 08/30/17 21:44 Quetiapine Fumarate (SEROquel) 50 mg DAILY ORAL 08/01/17 09:00 08/31/17 08:59 08/01/17 08:27 Tramadol HCl (Ultram) 50 mg Q6H PRN ORAL For Moderate Pain 07/31/17 21:45 08/07/17 21:44 Zolpidem Tartrate (Ambien) 5 mg HSPRN PRN ORAL Insomnia 07/31/17 21:45 08/07/17 21:44 GI: Plan Problems: (1) GERD (gastroesophageal reflux disease) (2) Abdominal pain (3) Malfunction of percutaneous endoscopic gastrostomy (PEG) tube (4) Altered mental status Plan supportive care at this time GTFs per dietary, pt tolerating GT site care daily/prn Prevacid GT daily bowel regime monitor H&H, prn transfusions electrolyte replacement fu labs Discussed with Dr. Villeda. Thank you for this patient referral, we will follow. Jennifer Chavez N.P. Aug 01, 2017 17:55
[2017-08-01] MEDS: Docusate 100mg/10ml Liq GT SCH (18:25)
--- NOTE | 2017-08-01 18:41 | History and Physical ---
History of Present Illness General Date patient seen: Aug 01, 2017 Reason for Hospitalization: Pain Present Illness HPI Patient presents with complaints of increased abdominal pain fairly diffuse Patient herself has limited ability to provide history Patient has history of ovarian cancer However upon arrival the patient was reported to have received pain medicine and appears somewhat disoriented and confused Allergies: Coded Allergies: No Known Allergies (Unverified , 04/28/17) Medication History Scheduled Atorvastatin Calcium* (Atorvastatin Calcium*), 20 MG ORAL BEDTIME, (Reported) Levetiracetam* (Levetiracetam*), 500 MG GT BID, (Reported) Lorazepam* (Ativan*), 1 MG ORAL Q4HR, (Reported) Mirtazapine* (Mirtazapine*), 7.5 MG ORAL BEDTIME, (Reported) Multivitamin With Minerals (Multivitamins With Minerals*), 1 TAB ORAL DAILY, ( Reported) Quetiapine Fumarate* (Seroquel*), 50 MG ORAL DAILY, (Reported) Scheduled PRN Acetaminophen* (Acetaminophen 325MG Tablet*), 325 MG ORAL Q4H PRN for Mild Pain (Pain Scale 1-3), (Reported) Hydrocodone Bit/Acetaminophen 5-325* ([place] 5-325*), 1 TAB ORAL Q8HR PRN for For Pain, (Reported) Ondansetron* (Zofran*), 4 MG ORAL Q4HR PRN for Nausea & Vomiting, (Reported) Tramadol Hcl* (Ultram*), 50 MG ORAL Q6H PRN for For Pain, (Reported) Miscellaneous Medications Sennosides/Docusate Sodium (Senna S Tablet), 1 EACH PO, (Reported) Patient History Healthcare decision maker Resuscitation status Full Code Advanced Directive on File Past Medical/Surgical History Past Medical/Surgical History: (1) Cerebrovascular accident (CVA) (2) Hypothyroid (3) GERD (gastroesophageal reflux disease) Review of Systems All Other Systems: negative except mentioned in HPI Physical Exam General Appearance: cachetic Lines, tubes and drains: peripheral HEENT: normocephalic Neck: non-tender, normal alignment Respiratory/Chest: chest wall non-tender, lungs clear Breasts: no masses Cardiovascular/Chest: normal peripheral pulses Abdomen: normal bowel sounds, non tender Last 24 Hour Vital Signs Date Time Temp Pulse Resp B/P (MAP) Pulse Ox O2 Delivery O2 Flow Rate FiO2 08/01/17 12:00 98.2 57 18 129/78 100 Room Air 08/01/17 09:00 98.2 70 19 147/93 97 Room Air 08/01/17 00:26 97.7 67 20 145/93 98 Room Air 08/01/17 00:10 69 15 150/78 99 Room Air 07/31/17 22:06 98.0 81 16 135/76 98 Room Air 07/31/17 20:30 98.0 72 16 127/81 98 Room Air 07/31/17 19:02 60 16 143/82 98 Room Air Intake and Output 08/01/17 08/02/17 19:00 07:00 Intake Total 750 ml Output Total 350 ml Balance 400 ml Intake Free Water 250 ml Tube Feeding 500 ml Output Urine Total 350 ml # Bowel Movements 2 Laboratory Tests Test 07/31/17 20:15 07/31/17 21:15 08/01/17 07:50 Urine Color Pale yellow Urine Appearance Slightly cloudy Urine pH 8 (4.5-8.0) Urine Specific [place] 1.010 (1.005-1.035) Urine Protein Negative (NEGATIVE) Urine Glucose (UA) Negative (NEGATIVE) Urine Ketones Negative (NEGATIVE) Urine Occult Blood 3+ (NEGATIVE) H Urine Nitrite Positive (NEGATIVE) H Urine Bilirubin Negative (NEGATIVE) Urine Urobilinogen Normal MG/DL (0.0-1.0) Urine Leukocyte Esterase 3+ (NEGATIVE) H Urine RBC 5-10 /HPF (0 - 2) H Urine WBC 10-15 /HPF (0 - 2) H Urine Squamous Epithelial Cells None /LPF (NONE/OCC) Urine Bacteria Few /HPF (NONE) White Blood Count 5.9 K/UL (4.8-10.8) 6.1 K/UL (4.8-10.8) Red Blood Count 4.94 M/UL (4.20-5.40) 4.78 M/UL (4.20-5.40) Hemoglobin 12.3 G/DL (12.0-16.0) 12.1 G/DL (12.0-16.0) Hematocrit 42.3 % (37.0-47.0) 40.2 % (37.0-47.0) Mean Corpuscular Volume 86 FL (80-99) 84 FL (80-99) Mean Corpuscular Hemoglobin 24.9 PG (27.0-31.0) L 25.3 PG (27.0-31.0) L Mean Corpuscular Hemoglobin Concent 29.1 G/DL (32.0-36.0) L 30.1 G/DL (32.0-36.0) L Red Cell Distribution Width 22.5 % (11.6-14.8) H 22.1 % (11.6-14.8) H Platelet Count 284 K/UL (150-450) 323 K/UL (150-450) Mean Platelet Volume 8.0 FL (6.5-10.1) 9.4 FL (6.5-10.1) Neutrophils (%) (Auto) 64.0 % (45.0-75.0) 78.1 % (45.0-75.0) H Lymphocytes (%) (Auto) 27.4 % (20.0-45.0) 12.0 % (20.0-45.0) L Monocytes (%) (Auto) 3.9 % (1.0-10.0) 5.2 % (1.0-10.0) Eosinophils (%) (Auto) 3.3 % (0.0-3.0) H 3.4 % (0.0-3.0) H Basophils (%) (Auto) 1.4 % (0.0-2.0) 1.3 % (0.0-2.0) Sodium Level 135 MMOL/L (136-145) L 134 MMOL/L (136-145) L Potassium Level 3.7 MMOL/L (3.5-5.1) 3.7 MMOL/L (3.5-5.1) Chloride Level 99 MMOL/L (98-107) 98 MMOL/L (98-107) Carbon Dioxide Level 29 MMOL/L (21-32) 29 MMOL/L (21-32) Anion Gap 7 (5-15) 7 (5-15) Blood Urea Nitrogen 14 mg/dL (7-18) 16 mg/dL (7-18) Creatinine 0.7 MG/DL (0.55-1.30) 0.8 MG/DL (0.55-1.30) Estimat Glomerular Filtration Rate > 60 mL/min (>60) > 60 mL/min (>60) Glucose Level 80 MG/DL (74-106) 112 MG/DL (74-106) H Calcium Level 10.3 MG/DL (8.5-10.1) H 10.0 MG/DL (8.5-10.1) Total Bilirubin 0.3 MG/DL (0.2-1.0) 0.5 MG/DL (0.2-1.0) Aspartate Amino Transf (AST/SGOT) 17 U/L (15-37) 18 U/L (15-37) Alanine Aminotransferase (ALT/SGPT) 15 U/L (12-78) 16 U/L (12-78) Alkaline Phosphatase 95 U/L (46-116) 94 U/L (46-116) Total Protein 8.6 G/DL (6.4-8.2) H 8.4 G/DL (6.4-8.2) H Albumin 3.6 G/DL (3.4-5.0) 3.5 G/DL (3.4-5.0) Globulin 5.0 g/dL 4.9 g/dL Albumin/Globulin Ratio 0.7 (1.0-2.7) L 0.7 (1.0-2.7) L Lipase 129 U/L (73-393) Phosphorus Level 4.2 MG/DL (2.5-4.9) Magnesium Level 1.9 MG/DL (1.8-2.4) Thyroid Stimulating Hormone (TSH) 1.655 uiU/mL (0.360-3.740) Height (Feet): 5 Height (Inches): 8.00 Weight (Pounds): 125 Medications Current Medications Medications (Trade) Dose Ordered Sig/Kendy Route PRN Reason Start Time Stop Time Status Last Admin Dose Admin Acetaminophen (Tylenol) 650 mg Q4H PRN ORAL fever 07/31/17 21:45 08/30/17 21:44 Al Hydroxide/Mg Hydroxide (Mylanta II) 30 ml Q6H PRN ORAL dyspepsia 07/31/17 21:45 08/30/17 21:44 Dextrose (Dextrose 50%) STAT PRN IV Hypoglycemia 07/31/17 21:45 08/30/17 21:44 Docusate Sodium (Colace) 100 mg TWICE A DAY GT 08/01/17 18:00 08/31/17 17:59 08/01/17 18:25 Heparin Sodium (Porcine) (Heparin 5000 units/ml) 5,000 units EVERY 12 HOURS SUBQ 08/01/17 09:00 08/31/17 08:59 08/01/17 08:34 Lansoprazole (Prevacid) 30 mg DAILY GT 08/02/17 09:00 09/01/17 08:59 Levetiracetam (Keppra) 500 mg BID GT 08/01/17 09:00 08/31/17 08:59 08/01/17 17:23 Lorazepam (Ativan 2mg/ml 1ml) 0.5 mg Q4H PRN IV For Anxiety 07/31/17 21:45 08/07/17 21:44 08/01/17 05:01 Morphine Sulfate (Morphine Sulfate) 2 mg Q4H PRN IVP For Pain 4-6 07/31/17 21:45 08/07/17 21:44 08/01/17 01:18 Morphine Sulfate (Morphine Sulfate) 4 mg Q4H PRN IVP For Pain 7-10 07/31/17 21:45 08/07/17 21:44 Ondansetron HCl (Zofran) 4 mg Q4H PRN ORAL Nausea & Vomiting 07/31/17 21:45 08/30/17 21:44 Ondansetron HCl (Zofran) 4 mg Q6H PRN IVP Nausea & Vomiting 07/31/17 21:45 08/30/17 21:44 Piperacillin Sod/ Tazobactam Sod 3.375 gm/Sodium Chloride 110 ml @ 27.5 mls/hr EVERY 8 HOURS IVPB 08/01/17 00:00 08/08/17 00:00 08/01/17 14:44 Polyethylene Glycol (Miralax) 17 gm BEDTIME GT 08/01/17 21:00 08/31/17 20:59 Polyethylene Glycol (Miralax) 17 gm HSPRN PRN ORAL Constipation 07/31/17 21:45 08/30/17 21:44 Quetiapine Fumarate (SEROquel) 50 mg DAILY ORAL 08/01/17 09:00 08/31/17 08:59 08/01/17 08:27 Tramadol HCl (Ultram) 50 mg Q6H PRN ORAL For Moderate Pain 07/31/17 21:45 08/07/17 21:44 Zolpidem Tartrate (Ambien) 5 mg HSPRN PRN ORAL Insomnia 07/31/17 21:45 08/07/17 21:44 Assessment/Plan Problem List: (1) Abdominal pain ICD Codes: R10.9 - Unspecified abdominal pain SNOMED: 31626333 (2) GERD (gastroesophageal reflux disease) ICD Codes: K21.9 - Gastro-esophageal reflux disease without esophagitis SNOMED: 091926995 (3) Hypothyroid ICD Codes: E03.9 - Hypothyroidism, unspecified SNOMED: 33623310 (4) Protein-calorie malnutrition, severe ICD Codes: E43 - Unspecified severe protein-calorie malnutrition SNOMED: 158013887 (5) Cerebrovascular accident (CVA) ICD Codes: I63.9 - Cerebral infarction, unspecified SNOMED: 336767557 Assessment/Plan npo GI evaluation symptomatic treatment dvt prophylaxis JANIS DYKES Aug 01, 2017 18:41
[2017-08-01 19:00] VITALS: BP 134/84
[2017-08-01 21:00] VITALS: BP 121/77
[2017-08-01] MEDS: Miralax 17gm pkt GT SCH (21:14)
[2017-08-02 04:00] VITALS: BP 134/69
[2017-08-02] MEDS: Piperacillin/Tazobactam 3.375 GM in NS 110 ML IVPB SCH ×3 (06:23→22:15)
[2017-08-02 07:34] LABS: BASOPHILS % (AUTO) 1.3 % (0.0-2.0); EOSINOPHILS % (AUTO) 10.4 % (0.0-3.0); MEAN CORPUSCULAR HEMOGLOBIN 25.6 PG (27.0-31.0); MEAN CORPUSCULAR HGB CONC 30.3 G/DL (32.0-36.0); MEAN CORPUSCULAR VOLUME 84 FL (80-99); MEAN PLATELET VOLUME 9.5 FL (6.5-10.1); MONOCYTES % (AUTO) 7.7 % (1.0-10.0); NEUTROPHILS % (AUTO) 58.6 % (45.0-75.0); PLATELET COUNT 314 K/UL (150-450); RED CELL DISTRIBUTION WIDTH 22.7 % (11.6-14.8); WHITE BLOOD COUNT 4.4 K/UL (4.8-10.8)
[2017-08-02 08:41] VITALS: BP 133/83
[2017-08-02] MEDS: Docusate 100mg/10ml Liq GT SCH ×2 (08:44→18:00)
[2017-08-02] MEDS: levETIRAcetam 500mg/5ml Liquid GT SCH ×2 (08:44→18:37)
[2017-08-02 08:46] VITALS: BP 133/83
[2017-08-02] MEDS: Heparin 5000 units/ml inj SUBQ SCH ×2 (08:47→22:07)
[2017-08-02 09:41] LABS: ANION GAP 8 (5-15); CALCIUM 10.1 MG/DL (8.5-10.1); CARBON DIOXIDE 28 MMOL/L (21-32); CHLORIDE 104 MMOL/L (98-107); CREATININE 0.8 MG/DL (0.55-1.30); GLOMERULAR FILTRATION RATE > 60 mL/min (>60); POTASSIUM 4.3 MMOL/L (3.5-5.1); SODIUM 140 MMOL/L (136-145)
[2017-08-02 11:42] VITALS: BP 146/96
--- NOTE | 2017-08-02 12:53 | GI Progress Note ---
Assessment/Plan Problems: (1) GERD (gastroesophageal reflux disease) ICD Codes: K21.9 - Gastro-esophageal reflux disease without esophagitis SNOMED: 654859595 (2) Altered mental status ICD Codes: R41.82 - Altered mental status, unspecified SNOMED: 962271844 (3) Malfunction of percutaneous endoscopic gastrostomy (PEG) tube ICD Codes: K94.23 - Gastrostomy malfunction SNOMED: 111184558 (4) Hypothyroid ICD Codes: E03.9 - Hypothyroidism, unspecified SNOMED: 01887693 Status: stable Status Narrative Discussed with Dr. Villeda. Assessment/Plan supportive care at this time GTFs per dietary, pt tolerating GT site care daily/prn Prevacid GT daily bowel regime monitor H&H, prn transfusions electrolyte replacement fu labs Subjective Subjective limited Objective Last 24 Hour Vital Signs Date Time Temp Pulse Resp B/P (MAP) Pulse Ox O2 Delivery O2 Flow Rate FiO2 08/02/17 11:42 97.3 68 19 146/96 99 Room Air 08/02/17 08:46 98.1 62 18 133/83 100 Room Air 08/02/17 04:00 97.5 56 20 134/69 98 Room Air 08/01/17 21:00 97.7 57 20 121/77 96 Room Air 08/01/17 19:00 97.0 61 20 134/84 98 Room Air Intake and Output 08/02/17 08/03/17 19:00 07:00 Output Total 400 ml Balance -400 ml Output Urine Total 400 ml Laboratory Tests Test 08/02/17 05:20 White Blood Count 4.4 K/UL (4.8-10.8) L Red Blood Count 4.60 M/UL (4.20-5.40) Hemoglobin 11.8 G/DL (12.0-16.0) L Hematocrit 38.9 % (37.0-47.0) Mean Corpuscular Volume 84 FL (80-99) Mean Corpuscular Hemoglobin 25.6 PG (27.0-31.0) L Mean Corpuscular Hemoglobin Concent 30.3 G/DL (32.0-36.0) L Red Cell Distribution Width 22.7 % (11.6-14.8) H Platelet Count 314 K/UL (150-450) Mean Platelet Volume 9.5 FL (6.5-10.1) Neutrophils (%) (Auto) 58.6 % (45.0-75.0) Lymphocytes (%) (Auto) 22.0 % (20.0-45.0) Monocytes (%) (Auto) 7.7 % (1.0-10.0) Eosinophils (%) (Auto) 10.4 % (0.0-3.0) H Basophils (%) (Auto) 1.3 % (0.0-2.0) Sodium Level 140 MMOL/L (136-145) Potassium Level 4.3 MMOL/L (3.5-5.1) Chloride Level 104 MMOL/L (98-107) Carbon Dioxide Level 28 MMOL/L (21-32) Anion Gap 8 (5-15) Blood Urea Nitrogen 17 mg/dL (7-18) Creatinine 0.8 MG/DL (0.55-1.30) Estimat Glomerular Filtration Rate > 60 mL/min (>60) Glucose Level 99 MG/DL (74-106) Calcium Level 10.1 MG/DL (8.5-10.1) Height (Feet): 5 Height (Inches): 8.00 Weight (Pounds): 125 General Appearance: no apparent distress, alert, thin Cardiovascular: normal rate Respiratory/Chest: normal breath sounds, no respiratory distress Abdominal Exam: normal bowel sounds, non tender, soft, GT site Jennifer Chavez N.P. Aug 02, 2017 12:53
[2017-08-02 16:00] VITALS: BP 133/90
--- NOTE | 2017-08-02 17:54 | Pulmonology Progress Note ---
Assessment/Plan Assessment/Plan ASSESSMENT AMS 2 to acute encephalopathy( likely due to cancer pain and infection), abdominal pain UTI bacteremia : real vs contaminant ovarian Ca seizure disorder hx of CVA with R hemiplegia dysphagia, G tube thalamic pain syndrome depression PLAN OF CARE MS floor empiric abx fup with cx urine cx + GNB blood cx 10/25 + GPC- real vs contaminant pain management pain specialist follows pain likely due to malignancy GI follows strict aspiration precautions supportive care GTF tolerates feeding GT site care daily and prn, site clean PPI bowel regime monitor H&H, transfuse prn monitor lytes and replace as needed seizure precautions, continue Keppra DVT prophylaxis PT/OT case discussed and evaluated by supervising physician Subjective Allergies: Coded Allergies: No Known Allergies (Unverified , 04/28/17) Subjective tolerates feeding afebrile, no leukocytosis intermittent abdominal pain Objective Last 24 Hour Vital Signs Date Time Temp Pulse Resp B/P (MAP) Pulse Ox O2 Delivery O2 Flow Rate FiO2 08/02/17 16:00 96.7 60 18 133/90 96 Room Air 08/02/17 11:42 97.3 68 19 146/96 99 Room Air 08/02/17 08:46 98.1 62 18 133/83 100 Room Air 08/02/17 04:00 97.5 56 20 134/69 98 Room Air 08/01/17 21:00 97.7 57 20 121/77 96 Room Air 08/01/17 19:00 97.0 61 20 134/84 98 Room Air Intake and Output 08/02/17 08/03/17 19:00 07:00 Intake Total 500 ml Output Total 400 ml Balance 100 ml Tube Feeding 500 ml Output Urine Total 400 ml # Bowel Movements 4 General Appearance: no acute distress, cachetic, other - bedridden, looking older than her biological age female, aphasic, but responsive with head nodding HEENT: normocephalic, atraumatic, anicteric Respiratory/Chest: lungs clear, no respiratory distress Cardiovascular: normal peripheral pulses, normal rate, no JVD Abdomen: normal bowel sounds, soft, non tender, non distended Extremities: no edema Neurologic/Psychiatric: abnormal gait - bedridden, alert, responsive, other - R hemiplegia Musculoskeletal: atrophy - BLE Microbiology Date/Time Source Procedure Growth Status 07/31/17 20:15 Urine,Clean Catch Urine Culture - Preliminary Gram Negative Bacillus 1 Resulted 07/31/17 21:15 Arm Left Blood Culture - Preliminary NO GROWTH AFTER 24 HOURS Resulted 07/31/17 21:00 Arm Left Blood Culture - Preliminary Resulted Laboratory Tests 08/02/17 05:20: White Blood Count 4.4L, Red Blood Count 4.60, Hemoglobin 11.8L, Hematocrit 38.9 , Mean Corpuscular Volume 84, Mean Corpuscular Hemoglobin 25.6L, Mean Corpuscular Hemoglobin Concent 30.3L, Red Cell Distribution Width 22.7H, Platelet Count 314, Mean Platelet Volume 9.5, Neutrophils (%) (Auto) 58.6, Lymphocytes (%) (Auto) 22.0, Monocytes (%) (Auto) 7.7, Eosinophils (%) (Auto) 10.4H, Basophils (%) (Auto) 1.3, Sodium Level 140, Potassium Level 4.3, Chloride Level 104, Carbon Dioxide Level 28, Anion Gap 8, Blood Urea Nitrogen 17 , Creatinine 0.8, Estimat Glomerular Filtration Rate > 60, Glucose Level 99, Calcium Level 10.1 Current Medications Medications (Trade) Dose Ordered Sig/Kendy Route PRN Reason Start Time Stop Time Status Last Admin Dose Admin Acetaminophen (Tylenol) 650 mg Q4H PRN ORAL fever 07/31/17 21:45 08/30/17 21:44 Al Hydroxide/Mg Hydroxide (Mylanta II) 30 ml Q6H PRN ORAL dyspepsia 07/31/17 21:45 08/30/17 21:44 Dextrose (Dextrose 50%) STAT PRN IV Hypoglycemia 07/31/17 21:45 08/30/17 21:44 Docusate Sodium (Colace) 100 mg TWICE A DAY GT 08/01/17 18:00 08/31/17 17:59 08/02/17 08:44 Heparin Sodium (Porcine) (Heparin 5000 units/ml) 5,000 units EVERY 12 HOURS SUBQ 08/01/17 09:00 08/31/17 08:59 08/02/17 08:47 Lansoprazole (Prevacid) 30 mg DAILY GT 08/02/17 09:00 09/01/17 08:59 08/02/17 08:44 Levetiracetam (Keppra) 500 mg BID GT 08/01/17 09:00 08/31/17 08:59 08/02/17 08:44 Lorazepam (Ativan 2mg/ml 1ml) 0.5 mg Q4H PRN IV For Anxiety 07/31/17 21:45 08/07/17 21:44 08/01/17 05:01 Morphine Sulfate (Morphine Sulfate) 2 mg Q4H PRN IVP For Pain 4-6 07/31/17 21:45 08/07/17 21:44 08/01/17 01:18 Morphine Sulfate (Morphine Sulfate) 4 mg Q4H PRN IVP For Pain 7-10 07/31/17 21:45 08/07/17 21:44 Ondansetron HCl (Zofran) 4 mg Q4H PRN ORAL Nausea & Vomiting 07/31/17 21:45 08/30/17 21:44 Ondansetron HCl (Zofran) 4 mg Q6H PRN IVP Nausea & Vomiting 07/31/17 21:45 08/30/17 21:44 Piperacillin Sod/ Tazobactam Sod 3.375 gm/Sodium Chloride 110 ml @ 27.5 mls/hr EVERY 8 HOURS IVPB 08/01/17 00:00 08/08/17 00:00 08/02/17 14:49 Polyethylene Glycol (Miralax) 17 gm BEDTIME GT 08/01/17 21:00 08/31/17 20:59 08/01/17 21:14 Polyethylene Glycol (Miralax) 17 gm HSPRN PRN ORAL Constipation 07/31/17 21:45 08/30/17 21:44 Quetiapine Fumarate (SEROquel) 50 mg DAILY ORAL 08/01/17 09:00 08/31/17 08:59 08/02/17 08:44 Tramadol HCl (Ultram) 50 mg Q6H PRN ORAL For Moderate Pain 07/31/17 21:45 08/07/17 21:44 Zolpidem Tartrate (Ambien) 5 mg HSPRN PRN ORAL Insomnia 07/31/17 21:45 08/07/17 21:44 [facility]Gen[facility] HospitalJenny Morris NP Aug 02, 2017 17:53
[2017-08-02 20:00] VITALS: BP 135/77
[2017-08-02] MEDS: Miralax 17gm pkt GT SCH ×2 (21:00→22:05)
[2017-08-03] VITALS: BP 148/84
[2017-08-03 04:00] VITALS: BP 143/88
[2017-08-03] MEDS: Piperacillin/Tazobactam 3.375 GM in NS 110 ML IVPB SCH ×3 (06:19→22:21)
[2017-08-03 07:11] LABS: BASOPHILS % (AUTO) 1.5 % (0.0-2.0); EOSINOPHILS % (AUTO) 5.5 % (0.0-3.0); LYMPHOCYTES % (AUTO) 20.4 % (20.0-45.0); MEAN CORPUSCULAR HEMOGLOBIN 25.1 PG (27.0-31.0); MEAN CORPUSCULAR HGB CONC 29.9 G/DL (32.0-36.0); MEAN CORPUSCULAR VOLUME 84 FL (80-99); MEAN PLATELET VOLUME 9.1 FL (6.5-10.1); MONOCYTES % (AUTO) 6.9 % (1.0-10.0); NEUTROPHILS % (AUTO) 65.7 % (45.0-75.0); PLATELET COUNT 304 K/UL (150-450); RED BLOOD COUNT 4.97 M/UL (4.20-5.40); RED CELL DISTRIBUTION WIDTH 22.5 % (11.6-14.8); WHITE BLOOD COUNT 4.4 K/UL (4.8-10.8)
[2017-08-03 07:43] LABS: ANION GAP 7 (5-15); CALCIUM 10.3 MG/DL (8.5-10.1); CARBON DIOXIDE 28 MMOL/L (21-32); CHLORIDE 105 MMOL/L (98-107); CREATININE 0.8 MG/DL (0.55-1.30); GLOMERULAR FILTRATION RATE > 60 mL/min (>60); POTASSIUM 4.2 MMOL/L (3.5-5.1); SODIUM 140 MMOL/L (136-145)
--- NOTE | 2017-08-03 08:37 | Pulmonology Progress Note ---
Assessment/Plan Assessment/Plan ASSESSMENT AMS 2 to acute encephalopathy( likely due to cancer pain and infection), abdominal pain UTI bacteremia : real vs contaminant ovarian Ca seizure disorder hx of CVA with R hemiplegia dysphagia, G tube thalamic pain syndrome depression PLAN OF CARE MS floor empiric abx fup with cx urine cx + KlebsiellaSCONGPC- real vs contaminant pain management pain specialist follows pain likely due to malignancy GI follows strict aspiration precautions supportive care GTF tolerates feeding GT site care daily and prn, site clean PPI bowel regime monitor H&H, transfuse prn monitor lytes and replace as needed seizure precautions, continue Keppra DVT prophylaxis PT/OT dc plan, case discussed and evaluated by supervising physician Subjective Allergies: Coded Allergies: No Known Allergies (Unverified , 04/28/17) Subjective tolerates feeding afebrile, no leukocytosis intermittent abdominal pain controlled with current analgesics Objective Last 24 Hour Vital Signs Date Time Temp Pulse Resp B/P (MAP) Pulse Ox O2 Delivery O2 Flow Rate FiO2 08/03/17 04:00 97.5 55 19 143/88 97 Room Air 08/03/17 04:00 97.5 55 18 143/88 97 Room Air 08/03/17 00:00 97.3 57 19 148/84 100 Room Air 08/02/17 20:00 97.7 68 18 135/77 96 Room Air 08/02/17 16:00 96.7 60 18 133/90 96 Room Air 08/02/17 11:42 97.3 68 19 146/96 99 Room Air 08/02/17 08:46 98.1 62 18 133/83 100 Room Air Intake and Output 08/03/17 08/04/17 19:00 07:00 Intake Total 27.5 ml Balance 27.5 ml IV Total 27.5 ml Objective General Appearance: no acute distress, cachetic, bedridden, looking older than her biological age female, aphasic, but responsive with head nodding HEENT: normocephalic, atraumatic, anicteric Respiratory/Chest: lungs clear, no respiratory distress Cardiovascular: normal peripheral pulses, normal rate, no JVD Abdomen: normal bowel sounds, soft, non tender, non distended Extremities: no edema Neurologic/Psychiatric: abnormal gait - bedridden, alert, responsive, other - R hemiplegia Musculoskeletal: atrophy - BLE Microbiology Date/Time Source Procedure Growth Status 07/31/17 20:15 Urine,Clean Catch Urine Culture - Preliminary Klebsiella Pneumoniae Resulted 07/31/17 21:15 Arm Left Blood Culture - Preliminary NO GROWTH AFTER 48 HOURS Resulted 07/31/17 21:00 Arm Left Blood Culture - Preliminary Staphylococcus Sp Coag Neg Resulted Laboratory Tests 08/03/17 05:35: White Blood Count 4.4L, Red Blood Count 4.97, Hemoglobin 12.5, Hematocrit 41.8, Mean Corpuscular Volume 84, Mean Corpuscular Hemoglobin 25.1L, Mean Corpuscular Hemoglobin Concent 29.9L, Red Cell Distribution Width 22.5H, Platelet Count 304 , Mean Platelet Volume 9.1, Neutrophils (%) (Auto) 65.7, Lymphocytes (%) (Auto) 20.4, Monocytes (%) (Auto) 6.9, Eosinophils (%) (Auto) 5.5H, Basophils (%) (Auto ) 1.5, Sodium Level 140, Potassium Level 4.2, Chloride Level 105, Carbon Dioxide Level 28, Anion Gap 7, Blood Urea Nitrogen 15, Creatinine 0.8, Estimat Glomerular Filtration Rate > 60, Glucose Level 97, Calcium Level 10.3H Current Medications Medications (Trade) Dose Ordered Sig/Kendy Route PRN Reason Start Time Stop Time Status Last Admin Dose Admin Acetaminophen (Tylenol) 650 mg Q4H PRN ORAL fever 07/31/17 21:45 08/30/17 21:44 Al Hydroxide/Mg Hydroxide (Mylanta II) 30 ml Q6H PRN ORAL dyspepsia 07/31/17 21:45 08/30/17 21:44 Dextrose (Dextrose 50%) STAT PRN IV Hypoglycemia 07/31/17 21:45 08/30/17 21:44 Docusate Sodium (Colace) 100 mg TWICE A DAY GT 08/01/17 18:00 08/31/17 17:59 08/02/17 08:44 Heparin Sodium (Porcine) (Heparin 5000 units/ml) 5,000 units EVERY 12 HOURS SUBQ 08/01/17 09:00 08/31/17 08:59 08/02/17 22:07 Lansoprazole (Prevacid) 30 mg DAILY GT 08/02/17 09:00 09/01/17 08:59 08/02/17 08:44 Levetiracetam (Keppra) 500 mg BID GT 08/01/17 09:00 08/31/17 08:59 08/02/17 18:37 Lorazepam (Ativan 2mg/ml 1ml) 0.5 mg Q4H PRN IV For Anxiety 07/31/17 21:45 08/07/17 21:44 08/01/17 05:01 Morphine Sulfate (Morphine Sulfate) 2 mg Q4H PRN IVP For Pain 4-6 07/31/17 21:45 08/07/17 21:44 08/01/17 01:18 Morphine Sulfate (Morphine Sulfate) 4 mg Q4H PRN IVP For Pain 7-10 07/31/17 21:45 08/07/17 21:44 Ondansetron HCl (Zofran) 4 mg Q4H PRN ORAL Nausea & Vomiting 07/31/17 21:45 08/30/17 21:44 Ondansetron HCl (Zofran) 4 mg Q6H PRN IVP Nausea & Vomiting 07/31/17 21:45 08/30/17 21:44 Piperacillin Sod/ Tazobactam Sod 3.375 gm/Sodium Chloride 110 ml @ 27.5 mls/hr EVERY 8 HOURS IVPB 08/01/17 00:00 08/08/17 00:00 08/03/17 06:19 Polyethylene Glycol (Miralax) 17 gm BEDTIME GT 08/01/17 21:00 08/31/17 20:59 08/01/17 21:14 Polyethylene Glycol (Miralax) 17 gm HSPRN PRN ORAL Constipation 07/31/17 21:45 08/30/17 21:44 Quetiapine Fumarate (SEROquel) 50 mg DAILY ORAL 08/01/17 09:00 08/31/17 08:59 08/02/17 08:44 Tramadol HCl (Ultram) 50 mg Q6H PRN ORAL For Moderate Pain 07/31/17 21:45 08/07/17 21:44 Zolpidem Tartrate (Ambien) 5 mg HSPRN PRN ORAL Insomnia 07/31/17 21:45 08/07/17 21:44 Jenny Panda NP ([place]) Aug 03, 2017 08:37
[2017-08-03] MEDS: Docusate 100mg/10ml Liq GT SCH ×2 (09:00→18:00)
[2017-08-03] MEDS: Heparin 5000 units/ml inj SUBQ SCH ×2 (09:42→22:22)
[2017-08-03] MEDS: levETIRAcetam 500mg/5ml Liquid GT SCH ×2 (09:44→18:04)
--- NOTE | 2017-08-03 15:11 | GI Progress Note ---
Assessment/Plan Problems: (1) GERD (gastroesophageal reflux disease) ICD Codes: K21.9 - Gastro-esophageal reflux disease without esophagitis SNOMED: 371568417 (2) Altered mental status ICD Codes: R41.82 - Altered mental status, unspecified SNOMED: 265219340 (3) Malfunction of percutaneous endoscopic gastrostomy (PEG) tube ICD Codes: K94.23 - Gastrostomy malfunction SNOMED: 460480638 (4) Hypothyroid ICD Codes: E03.9 - Hypothyroidism, unspecified SNOMED: 83468567 Status: stable, unchanged Status Narrative Discussed with Dr. Villeda. Assessment/Plan supportive care at this time GTFs per dietary, pt tolerating GT site care daily/prn Prevacid GT daily bowel regime monitor H&H, prn transfusions electrolyte replacement fu labs Subjective Subjective limited Objective Last 24 Hour Vital Signs Date Time Temp Pulse Resp B/P (MAP) Pulse Ox O2 Delivery O2 Flow Rate FiO2 08/03/17 04:00 97.5 55 19 143/88 97 Room Air 08/03/17 04:00 97.5 55 18 143/88 97 Room Air 08/03/17 00:00 97.3 57 19 148/84 100 Room Air 08/02/17 20:00 97.7 68 18 135/77 96 Room Air 08/02/17 16:00 96.7 60 18 133/90 96 Room Air Intake and Output 08/03/17 08/04/17 19:00 07:00 Intake Total 27.5 ml Balance 27.5 ml IV Total 27.5 ml Laboratory Tests Test 08/03/17 05:35 White Blood Count 4.4 K/UL (4.8-10.8) L Red Blood Count 4.97 M/UL (4.20-5.40) Hemoglobin 12.5 G/DL (12.0-16.0) Hematocrit 41.8 % (37.0-47.0) Mean Corpuscular Volume 84 FL (80-99) Mean Corpuscular Hemoglobin 25.1 PG (27.0-31.0) L Mean Corpuscular Hemoglobin Concent 29.9 G/DL (32.0-36.0) L Red Cell Distribution Width 22.5 % (11.6-14.8) H Platelet Count 304 K/UL (150-450) Mean Platelet Volume 9.1 FL (6.5-10.1) Neutrophils (%) (Auto) 65.7 % (45.0-75.0) Lymphocytes (%) (Auto) 20.4 % (20.0-45.0) Monocytes (%) (Auto) 6.9 % (1.0-10.0) Eosinophils (%) (Auto) 5.5 % (0.0-3.0) H Basophils (%) (Auto) 1.5 % (0.0-2.0) Sodium Level 140 MMOL/L (136-145) Potassium Level 4.2 MMOL/L (3.5-5.1) Chloride Level 105 MMOL/L (98-107) Carbon Dioxide Level 28 MMOL/L (21-32) Anion Gap 7 (5-15) Blood Urea Nitrogen 15 mg/dL (7-18) Creatinine 0.8 MG/DL (0.55-1.30) Estimat Glomerular Filtration Rate > 60 mL/min (>60) Glucose Level 97 MG/DL (74-106) Calcium Level 10.3 MG/DL (8.5-10.1) H Height (Feet): 5 Height (Inches): 8.00 Weight (Pounds): 125 General Appearance: no apparent distress, alert, thin Cardiovascular: normal rate Respiratory/Chest: normal breath sounds, no respiratory distress Abdominal Exam: normal bowel sounds, non tender, soft, GT site Jennifer Chavez NAshlie Aug 03, 2017 15:11
[2017-08-03] MEDS ORDERED: NS Irrig 1000ml ONE (17:33)
[2017-08-03] MEDS ORDERED: NS 275ml ONE (17:33)
[2017-08-03] MEDS ORDERED: NS 500ML IV ONE (17:33)
[2017-08-03 20:00] VITALS: BP 157/93
[2017-08-03] MEDS: Miralax 17gm pkt GT SCH (21:00)
[2017-08-04] VITALS: BP 158/90
[2017-08-04 04:00] VITALS: BP 157/81
[2017-08-04] MEDS: Piperacillin/Tazobactam 3.375 GM in NS 110 ML IVPB SCH ×3 (06:28→23:44)
[2017-08-04 08:41] LABS: BASOPHILS % (AUTO) 1.1 % (0.0-2.0); EOSINOPHILS % (AUTO) 1.9 % (0.0-3.0); LYMPHOCYTES % (AUTO) 15.3 % (20.0-45.0); MEAN CORPUSCULAR HEMOGLOBIN 25.3 PG (27.0-31.0); MEAN CORPUSCULAR HGB CONC 29.7 G/DL (32.0-36.0); MEAN CORPUSCULAR VOLUME 85 FL (80-99); MEAN PLATELET VOLUME 9.3 FL (6.5-10.1); MONOCYTES % (AUTO) 5.5 % (1.0-10.0); NEUTROPHILS % (AUTO) 76.3 % (45.0-75.0); PLATELET COUNT 245 K/UL (150-450); RED BLOOD COUNT 5.32 M/UL (4.20-5.40); RED CELL DISTRIBUTION WIDTH 22.8 % (11.6-14.8); WHITE BLOOD COUNT 4.8 K/UL (4.8-10.8)
[2017-08-04 08:56] LABS: ANION GAP 7 (5-15); CALCIUM 10.1 MG/DL (8.5-10.1); CARBON DIOXIDE 27 MMOL/L (21-32); CHLORIDE 102 MMOL/L (98-107); CREATININE 0.8 MG/DL (0.55-1.30); GLOMERULAR FILTRATION RATE > 60 mL/min (>60); SODIUM 136 MMOL/L (136-145)
[2017-08-04 09:00] VITALS: BP 139/82
--- NOTE | 2017-08-04 09:00 | General Progress Note ---
Assessment/Plan Problem List: (1) Abdominal pain ICD Codes: R10.9 - Unspecified abdominal pain SNOMED: 76525383 (2) UTI (urinary tract infection) ICD Codes: N39.0 - Urinary tract infection, site not specified SNOMED: 98265029 (3) Hypothyroid ICD Codes: E03.9 - Hypothyroidism, unspecified SNOMED: 88559136 (4) Malfunction of percutaneous endoscopic gastrostomy (PEG) tube ICD Codes: K94.23 - Gastrostomy malfunction SNOMED: 928737640 (5) GERD (gastroesophageal reflux disease) ICD Codes: K21.9 - Gastro-esophageal reflux disease without esophagitis SNOMED: 231661350 Assessment/Plan increase GTF to 55 cc GT flush ok to dc GI stand point Subjective ROS Limited/Unobtainable: No Allergies: Coded Allergies: No Known Allergies (Unverified , 04/28/17) Objective Last 24 Hour Vital Signs Date Time Temp Pulse Resp B/P (MAP) Pulse Ox O2 Delivery O2 Flow Rate FiO2 08/04/17 04:00 97.0 55 16 157/81 100 Room Air 08/04/17 00:00 97.3 50 16 158/90 100 Room Air 08/03/17 20:00 97.9 59 16 157/93 99 Room Air 08/03/17 18:03 55 143/88 Laboratory Tests 08/04/17 06:57: White Blood Count 4.8, Red Blood Count 5.32, Hemoglobin 13.5, Hematocrit 45.3, Mean Corpuscular Volume 85, Mean Corpuscular Hemoglobin 25.3L, Mean Corpuscular Hemoglobin Concent 29.7L, Red Cell Distribution Width 22.8H, Platelet Count 245 , Mean Platelet Volume 9.3, Neutrophils (%) (Auto) 76.3H, Lymphocytes (%) (Auto ) 15.3L, Monocytes (%) (Auto) 5.5, Eosinophils (%) (Auto) 1.9, Basophils (%) ( Auto) 1.1, Sodium Level 136, Potassium Level 4.0, Chloride Level 102, Carbon Dioxide Level 27, Anion Gap 7, Blood Urea Nitrogen 16, Creatinine 0.8, Estimat Glomerular Filtration Rate > 60, Glucose Level 109H, Calcium Level 10.1 Height (Feet): 5 Height (Inches): 8.00 Weight (Pounds): 125 General Appearance: no apparent distress EENT: normal ENT inspection Neck: supple Cardiovascular: normal rate Respiratory/Chest: decreased breath sounds Abdomen: normal bowel sounds, non tender, soft Extremities: non-tender LÓPEZ CHERRY Aug 04, 2017 09:00
[2017-08-04] MEDS: Docusate 100mg/10ml Liq GT SCH ×2 (09:38→17:54)
[2017-08-04] MEDS: Morphine Sulfate 2mg/ml Inj IVP PRN (09:38)
[2017-08-04] MEDS: levETIRAcetam 500mg/5ml Liquid GT SCH ×2 (09:51→17:54)
[2017-08-04] MEDS: Heparin 5000 units/ml inj SUBQ SCH ×2 (10:00→23:53)
[2017-08-04] MEDS: LORazepam Inj 2mg/ml 1ml IV PRN ×2 (10:54→15:39)
--- NOTE | 2017-08-04 12:57 | Pulmonology Progress Note ---
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 seizure disorder hx of CVA with R hemiplegia dysphagia, G tube thalamic pain syndrome depression PLAN OF CARE MS floor empiric abx fup with cx urine cx + Klebsiella, blood cx - SCON- 10/25 -likely contaminant pain management pain specialist follows pain likely due to malignancy GI follows strict aspiration precautions supportive care GTF , tolerates rate increased as per GI GI follows GT site care daily and prn, site clean PPI bowel regime monitor H&H, transfuse prn monitor lytes and replace as needed seizure precautions, continue Keppra DVT prophylaxis PT/OT GI cleared for dc dc plan case discussed and evaluated by supervising physician Subjective Allergies: Coded Allergies: No Known Allergies (Unverified , 04/28/17) Subjective tolerates feeding afebrile, no leukocytosis intermittent abdominal pain Objective Last 24 Hour Vital Signs Date Time Temp Pulse Resp B/P (MAP) Pulse Ox O2 Delivery O2 Flow Rate FiO2 08/04/17 09:39 55 157/81 08/04/17 09:00 99.1 60 16 139/82 99 Room Air 08/04/17 04:00 97.0 55 16 157/81 100 Room Air 08/04/17 00:00 97.3 50 16 158/90 100 Room Air 08/03/17 20:00 97.9 59 16 157/93 99 Room Air 08/03/17 18:03 55 143/88 Intake and Output 08/04/17 08/05/17 19:00 07:00 # Bowel Movements 1 Objective General Appearance: no acute distress, cachetic, bedridden, looking older than her biological age female, aphasic, but responsive with head nodding HEENT: normocephalic, atraumatic, anicteric Respiratory/Chest: lungs clear, no respiratory distress Cardiovascular: normal peripheral pulses, normal rate, no JVD Abdomen: normal bowel sounds, soft, non tender, non distended Extremities: no edema Neurologic/Psychiatric: abnormal gait - bedridden, alert, responsive, other - R hemiplegia Musculoskeletal: atrophy - BLE Laboratory Tests 08/04/17 06:57: White Blood Count 4.8, Red Blood Count 5.32, Hemoglobin 13.5, Hematocrit 45.3, Mean Corpuscular Volume 85, Mean Corpuscular Hemoglobin 25.3L, Mean Corpuscular Hemoglobin Concent 29.7L, Red Cell Distribution Width 22.8H, Platelet Count 245 , Mean Platelet Volume 9.3, Neutrophils (%) (Auto) 76.3H, Lymphocytes (%) (Auto ) 15.3L, Monocytes (%) (Auto) 5.5, Eosinophils (%) (Auto) 1.9, Basophils (%) ( Auto) 1.1, Sodium Level 136, Potassium Level 4.0, Chloride Level 102, Carbon Dioxide Level 27, Anion Gap 7, Blood Urea Nitrogen 16, Creatinine 0.8, Estimat Glomerular Filtration Rate > 60, Glucose Level 109H, Calcium Level 10.1 Current Medications Medications (Trade) Dose Ordered Sig/Kendy Route PRN Reason Start Time Stop Time Status Last Admin Dose Admin Acetaminophen (Tylenol) 650 mg Q4H PRN ORAL fever 07/31/17 21:45 08/30/17 21:44 Al Hydroxide/Mg Hydroxide (Mylanta II) 30 ml Q6H PRN ORAL dyspepsia 07/31/17 21:45 08/30/17 21:44 Amlodipine Besylate (Norvasc) 5 mg DAILY ORAL 08/03/17 18:00 09/02/17 17:59 08/04/17 09:39 Dextrose (Dextrose 50%) STAT PRN IV Hypoglycemia 07/31/17 21:45 08/30/17 21:44 Docusate Sodium (Colace) 100 mg TWICE A DAY GT 08/01/17 18:00 08/31/17 17:59 08/04/17 09:38 Heparin Sodium (Porcine) (Heparin 5000 units/ml) 5,000 units EVERY 12 HOURS SUBQ 08/01/17 09:00 08/31/17 08:59 08/04/17 10:00 Lansoprazole (Prevacid) 30 mg DAILY GT 08/02/17 09:00 09/01/17 08:59 08/04/17 09:39 Levetiracetam (Keppra) 500 mg BID GT 08/01/17 09:00 08/31/17 08:59 08/04/17 09:51 Lorazepam (Ativan 2mg/ml 1ml) 0.5 mg Q4H PRN IV For Anxiety 07/31/17 21:45 08/07/17 21:44 08/04/17 10:54 Morphine Sulfate (Morphine Sulfate) 2 mg Q4H PRN IVP For Pain 4-6 07/31/17 21:45 08/07/17 21:44 08/04/17 09:38 Morphine Sulfate (Morphine Sulfate) 4 mg Q4H PRN IVP For Pain 7-10 07/31/17 21:45 08/07/17 21:44 Ondansetron HCl (Zofran) 4 mg Q4H PRN ORAL Nausea & Vomiting 07/31/17 21:45 08/30/17 21:44 Ondansetron HCl (Zofran) 4 mg Q6H PRN IVP Nausea & Vomiting 07/31/17 21:45 08/30/17 21:44 Piperacillin Sod/ Tazobactam Sod 3.375 gm/Sodium Chloride 110 ml @ 27.5 mls/hr EVERY 8 HOURS IVPB 08/01/17 00:00 08/08/17 00:00 08/04/17 06:28 Polyethylene Glycol (Miralax) 17 gm BEDTIME GT 08/01/17 21:00 08/31/17 20:59 08/01/17 21:14 Polyethylene Glycol (Miralax) 17 gm HSPRN PRN ORAL Constipation 07/31/17 21:45 08/30/17 21:44 Quetiapine Fumarate (SEROquel) 50 mg DAILY ORAL 08/01/17 09:00 08/31/17 08:59 08/04/17 09:38 Tramadol HCl (Ultram) 50 mg Q6H PRN ORAL For Moderate Pain 07/31/17 21:45 08/07/17 21:44 Zolpidem Tartrate (Ambien) 5 mg HSPRN PRN ORAL Insomnia 07/31/17 21:45 08/07/17 21:44 [facility] Morris NP Aug 04, 2017 12:57
[2017-08-04] MEDS ORDERED: NS 500ML IV ONE (16:40)
[2017-08-04] MEDS ORDERED: NS 275ml ONE (16:40)
[2017-08-04] MEDS ORDERED: NS Irrig 1000ml ONE (16:40)
[2017-08-04 20:06] VITALS: BP 155/81
[2017-08-04] MEDS: Miralax 17gm pkt GT SCH (21:00)
[2017-08-04 23:54] VITALS: BP 155/81
[2017-08-05] MEDS: Piperacillin/Tazobactam 3.375 GM in NS 110 ML IVPB SCH ×3 (06:55→21:33)
[2017-08-05 09:00] VITALS: BP 126/77
[2017-08-05] MEDS: Docusate 100mg/10ml Liq GT SCH ×2 (09:57→18:00)
[2017-08-05] MEDS: levETIRAcetam 500mg/5ml Liquid GT SCH ×2 (09:57→18:23)
[2017-08-05] MEDS: Heparin 5000 units/ml inj SUBQ SCH ×2 (09:58→20:36)
[2017-08-05] MEDS: LORazepam Inj 2mg/ml 1ml IV PRN (09:58)
[2017-08-05] MEDS ORDERED: Morphine Sulfate 4mg/ml Inj SUBQ PRN (10:00)
[2017-08-05] MEDS: Morphine Sulfate 2mg/ml Inj IVP PRN (10:15)
[2017-08-05] MEDS ORDERED: Tubing IV Secondary IV ONE (10:24)
[2017-08-05] MEDS ORDERED: LORazepam Inj 2mg/ml 1ml IM PRN (10:30)
--- NOTE | 2017-08-05 10:33 | General Progress Note ---
Assessment/Plan Problem List: (1) Abdominal pain ICD Codes: R10.9 - Unspecified abdominal pain SNOMED: 26432606 (2) UTI (urinary tract infection) ICD Codes: N39.0 - Urinary tract infection, site not specified SNOMED: 04020109 (3) Hypothyroid ICD Codes: E03.9 - Hypothyroidism, unspecified SNOMED: 09679869 (4) Malfunction of percutaneous endoscopic gastrostomy (PEG) tube ICD Codes: K94.23 - Gastrostomy malfunction SNOMED: 539534714 (5) GERD (gastroesophageal reflux disease) ICD Codes: K21.9 - Gastro-esophageal reflux disease without esophagitis SNOMED: 775476255 Assessment/Plan GTF to 55 cc GT flush ok to dc GI stand point Subjective ROS Limited/Unobtainable: No Allergies: Coded Allergies: No Known Allergies (Unverified , 04/28/17) Objective Last 24 Hour Vital Signs Date Time Temp Pulse Resp B/P (MAP) Pulse Ox O2 Delivery O2 Flow Rate FiO2 08/05/17 09:00 69 126/77 08/05/17 09:00 98.1 69 19 126/77 95 Room Air 08/04/17 23:54 98.1 81 17 155/81 96 Room Air 08/04/17 20:06 98.2 74 18 155/81 96 Room Air Height (Feet): 5 Height (Inches): 8.00 Weight (Pounds): 125 General Appearance: no apparent distress EENT: normal ENT inspection Neck: supple Cardiovascular: normal rate Respiratory/Chest: decreased breath sounds Abdomen: normal bowel sounds, non tender, soft Extremities: non-tender LÓPEZ CHERRY Aug 05, 2017 10:33
[2017-08-05 12:00] VITALS: BP 118/76
--- NOTE | 2017-08-05 13:04 | General Progress Note ---
Assessment/Plan Assessment/Plan (1) Abdominal pain (2) Peg tube malfunction (3) H/O CVA (4) Thalmic pain syndrome Pt will be continued on Morphine and Tramadol. D/w Dr. Perdomo and he concurred. Subjective Date patient seen: Aug 05, 2017 Time patient seen: 11:15 - am Constitutional: Reports: weakness Gastrointestinal/Abdominal: Reports: abdominal pain Neurologic/Psychiatric: Reports: weakness Allergies: Coded Allergies: No Known Allergies (Unverified , 04/28/17) Subjective Patient is in bed no signs of pain or distress at this time and is tolerating pain on the medications. Objective Last 24 Hour Vital Signs Date Time Temp Pulse Resp B/P (MAP) Pulse Ox O2 Delivery O2 Flow Rate FiO2 08/05/17 12:00 97.7 69 19 118/76 98 Room Air 08/05/17 09:00 69 126/77 08/05/17 09:00 98.1 69 19 126/77 95 Room Air 08/04/17 23:54 98.1 81 17 155/81 96 Room Air 08/04/17 20:06 98.2 74 18 155/81 96 Room Air Height (Feet): 5 Height (Inches): 8.00 Weight (Pounds): 125 General Appearance: alert EENT: PERRL/EOMI Neck: non-tender, normal alignment Cardiovascular: normal rate, regular rhythm Respiratory/Chest: lungs clear, normal breath sounds Abdomen: tender Extremities: non-tender Edema: trace edema Neurologic: alert, responsive Skin: warm/dry KLYEE PUENTE Aug 05, 2017 13:04
--- NOTE | 2017-08-05 13:18 | Pulmonology Progress Note ---
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 seizure disorder hx of CVA with R hemiplegia dysphagia, G tube thalamic pain syndrome depression PLAN OF CARE MS floor empiric abx fup with cx urine cx + Klebsiella, blood cx - SCON- 10/25 -likely contaminant pain management pain specialist follows pain likely due to malignancy GI follows strict aspiration precautions supportive care GTF , tolerates rate increased as per GI GI follows GT site care daily and prn, site clean PPI bowel regime monitor H&H, transfuse prn monitor lytes and replace as needed seizure precautions, continue Keppra DVT prophylaxis PT/OT GI cleared for dc dc plan family wants hospice hospice eval pending case discussed and evaluated by supervising physician Subjective Allergies: Coded Allergies: No Known Allergies (Unverified , 04/28/17) Subjective tolerates feeding afebrile, no leukocytosis intermittent abdominal pain Objective Last 24 Hour Vital Signs Date Time Temp Pulse Resp B/P (MAP) Pulse Ox O2 Delivery O2 Flow Rate FiO2 08/05/17 12:00 97.7 69 19 118/76 98 Room Air 08/05/17 09:00 69 126/77 08/05/17 09:00 98.1 69 19 126/77 95 Room Air 08/04/17 23:54 98.1 81 17 155/81 96 Room Air 08/04/17 20:06 98.2 74 18 155/81 96 Room Air Objective General Appearance: no acute distress, cachetic, bedridden, looking older than her biological age female, aphasic, but responsive with head nodding HEENT: normocephalic, atraumatic, anicteric Respiratory/Chest: lungs clear, no respiratory distress Cardiovascular: normal peripheral pulses, normal rate, no JVD Abdomen: normal bowel sounds, soft, non tender, non distended Extremities: no edema Neurologic/Psychiatric: abnormal gait - bedridden, alert, responsive, other - R hemiplegia Musculoskeletal: atrophy - BLE Current Medications Medications (Trade) Dose Ordered Sig/Kendy Route PRN Reason Start Time Stop Time Status Last Admin Dose Admin Acetaminophen (Tylenol) 650 mg Q4H PRN ORAL fever 07/31/17 21:45 08/30/17 21:44 Al Hydroxide/Mg Hydroxide (Mylanta II) 30 ml Q6H PRN ORAL dyspepsia 07/31/17 21:45 08/30/17 21:44 Amlodipine Besylate (Norvasc) 5 mg DAILY ORAL 08/03/17 18:00 09/02/17 17:59 08/05/17 09:00 Dextrose (Dextrose 50%) STAT PRN IV Hypoglycemia 07/31/17 21:45 08/30/17 21:44 Docusate Sodium (Colace) 100 mg TWICE A DAY GT 08/01/17 18:00 08/31/17 17:59 08/05/17 09:57 Heparin Sodium (Porcine) (Heparin 5000 units/ml) 5,000 units EVERY 12 HOURS SUBQ 08/01/17 09:00 08/31/17 08:59 08/05/17 09:58 Lansoprazole (Prevacid) 30 mg DAILY GT 08/02/17 09:00 09/01/17 08:59 08/05/17 09:00 Levetiracetam (Keppra) 500 mg BID GT 08/01/17 09:00 08/31/17 08:59 08/05/17 09:57 Lorazepam (Ativan 2mg/ml 1ml) 0.5 mg Q4H PRN IM For Anxiety 08/05/17 10:30 08/12/17 10:29 Morphine Sulfate (Morphine Sulfate) 2 mg Q4H PRN SUBQ For Pain 4-6 08/05/17 10:00 08/12/17 09:59 Morphine Sulfate (Morphine Sulfate) 4 mg Q4H PRN SUBQ For Pain 7-10 08/05/17 10:00 08/12/17 09:59 Ondansetron HCl (Zofran) 4 mg Q4H PRN ORAL Nausea & Vomiting 07/31/17 21:45 08/30/17 21:44 Ondansetron HCl (Zofran) 4 mg Q6H PRN IVP Nausea & Vomiting 07/31/17 21:45 08/30/17 21:44 Piperacillin Sod/ Tazobactam Sod 3.375 gm/Sodium Chloride 110 ml @ 27.5 mls/hr EVERY 8 HOURS IVPB 08/01/17 00:00 08/08/17 00:00 08/05/17 06:55 Polyethylene Glycol (Miralax) 17 gm BEDTIME GT 08/01/17 21:00 08/31/17 20:59 08/04/17 21:00 Polyethylene Glycol (Miralax) 17 gm HSPRN PRN ORAL Constipation 07/31/17 21:45 08/30/17 21:44 Quetiapine Fumarate (SEROquel) 50 mg DAILY ORAL 08/01/17 09:00 08/31/17 08:59 08/05/17 09:00 Tramadol HCl (Ultram) 50 mg Q6H PRN ORAL For Moderate Pain 07/31/17 21:45 08/07/17 21:44 Zolpidem Tartrate (Ambien) 5 mg HSPRN PRN ORAL Insomnia 07/31/17 21:45 08/07/17 21:44 Farzad ([facility])Jenny NP Aug 05, 2017 13:18
[2017-08-05 15:34] VITALS: BP 134/78
[2017-08-05] MEDS: Miralax 17gm pkt GT SCH (20:37)
[2017-08-05 20:51] VITALS: BP 112/71
[2017-08-05 23:14] VITALS: BP 96/65
[2017-08-06 04:00] VITALS: BP 129/74
[2017-08-06] MEDS: Piperacillin/Tazobactam 3.375 GM in NS 110 ML IVPB SCH ×2 (05:31→14:30)
[2017-08-06 08:00] VITALS: BP 113/66
--- NOTE | 2017-08-06 08:15 | Consultation ---
DATE OF CONSULTATION: 08/01/2017 PAIN MANAGEMENT CONSULTATION REFERRING PHYSICIAN: Neda Dalton M.D. CONSULTING PHYSICIAN: Liliam Perdomo M.D. PHYSICIAN HISTOPATH TECH: Taqueria David CHIEF COMPLAINT: Abdominal pain. HISTORY OF PRESENT ILLNESS: This is a 57-year-old female, who is being seen on the Medical[facility]Surgical floor of [facility] for initial comprehensive pain management consultation. The patient was admitted under the care of Dr. Dalton complaining of abdominal pain, found to have PEG tube malfunction, having history of left ovary cancer, hypertension, non-STEMI, CVA causing right-sided hemiplegia, and seizure disorder. At this time, the patient is on morphine 2 mg IV every four hours as needed for severe pain, which has been helping through the pain. She also has 4 mg IV if needed for severe pain. At this time, the patient is comfortable, no signs of distress. PAST MEDICAL HISTORY: As above. PAST SURGICAL HISTORY: Unknown. MEDICATIONS: Atorvastatin, Ativan, Seroquel, Tylenol, Adrian, Zofran, Ultram, and senna. ALLERGIES: No known drug allergies. SOCIAL HISTORY: As per chart. No history of smoking. Denies drinking. No drug abuse. REVIEW OF SYSTEMS: Unable to obtain due to the patient's mental status. PHYSICAL EXAMINATION: GENERAL: Alert. VITAL SIGNS: Blood pressure 129/78, oxygen saturation 100%, respiratory rate 18, and temperature is 98.3 degrees Fahrenheit. HEENT: PERRLA. NECK: Range of motion is full in all directions. No tenderness to paracervical muscles. No adenopathy. LUNGS: Decreased breath sounds bilaterally. HEART: Regular. ABDOMEN: tenderness to palpation. BACK: Range of motion decreased on flexion extension EXTREMITIES: Right-sided hemiplegia noted. No cyanosis. No clubbing. No edema. Sensory is reduced. Reflexes are unobtainable. No adenopathy. ASSESSMENT AND PLAN: This is a 57-year-old female with a history of cerebrovascular accident, thalamic pain syndrome, abdominal pain, and percutaneous endoscopic gastrostomy tube malfunction. The patient will be continued on tramadol 50 mg tablet every six hours as needed for mild pain, morphine 2-4 mg IV every four hours as needed for moderate to severe pain. The patient was discussed with Dr. Perdomo and Dr. Perdomo concurred. We will follow the patient. Thank you very much for the courtesy of this consultation. Liliam Perdomo M.D. KAPIL David DR: JALEN JOB#: [id number] CC: BELA
--- NOTE | 2017-08-06 08:23 | General Progress Note ---
Assessment/Plan Assessment/Plan (1) Abdominal pain (2) Peg tube malfunction (3) H/O CVA (4) Thalmic pain syndrome Pt will be continued on Morphine and Tramadol. D/w Dr. Perdomo and he concurred. Subjective Date patient seen: Aug 06, 2017 Time patient seen: 07:15 - am Allergies: Coded Allergies: No Known Allergies (Unverified , 04/28/17) Subjective Constitutional: Reports: weakness Gastrointestinal/Abdominal: Reports: abdominal pain Subjective Patient is in bed. Continues to c/o pain with reduction on pain on the morphine and tramadol. Objective Last 24 Hour Vital Signs Date Time Temp Pulse Resp B/P (MAP) Pulse Ox O2 Delivery O2 Flow Rate FiO2 08/06/17 04:00 97.5 55 20 129/74 100 Room Air 08/05/17 23:14 97.2 50 18 96/65 98 Room Air 08/05/17 20:51 97.9 55 18 112/71 97 Room Air 08/05/17 15:34 98.6 70 20 134/78 98 Room Air 08/05/17 12:00 97.7 69 19 118/76 98 Room Air 08/05/17 09:00 69 126/77 08/05/17 09:00 98.1 69 19 126/77 95 Room Air Height (Feet): 5 Height (Inches): 8.00 Weight (Pounds): 125 Objective General Appearance: alert EENT: PERRL/EOMI Neck: non-tender, normal alignment Cardiovascular: normal rate, regular rhythm Respiratory/Chest: lungs clear, normal breath sounds Abdomen: tender Extremities: non-tender Edema: trace edema Neurologic: alert, responsive Skin: warm/dry KYLEE PUENTE Aug 06, 2017 08:23
[2017-08-06] MEDS: Docusate 100mg/10ml Liq GT SCH ×2 (09:18→18:00)
[2017-08-06] MEDS: levETIRAcetam 500mg/5ml Liquid GT SCH ×2 (09:18→18:00)
[2017-08-06] MEDS: Morphine Sulfate 2mg/ml Inj SUBQ PRN ×4 (09:19→19:19)
[2017-08-06] MEDS: Heparin 5000 units/ml inj SUBQ SCH (09:24)
[2017-08-06 12:00] VITALS: BP 143/85
[2017-08-06] MEDS ORDERED: Flu Vaccine Quadrivalent 0.5ml IM ONE (12:00)
--- NOTE | 2017-08-06 13:19 | GI Progress Note ---
Assessment/Plan Problems: (1) GERD (gastroesophageal reflux disease) ICD Codes: K21.9 - Gastro-esophageal reflux disease without esophagitis SNOMED: 193144075 (2) Altered mental status ICD Codes: R41.82 - Altered mental status, unspecified SNOMED: 410217594 (3) Malfunction of percutaneous endoscopic gastrostomy (PEG) tube ICD Codes: K94.23 - Gastrostomy malfunction SNOMED: 836494927 (4) Hypothyroid ICD Codes: E03.9 - Hypothyroidism, unspecified SNOMED: 75809170 Status: unchanged Status Narrative Discussed with Dr. Villeda. Assessment/Plan okay for DC per GI standpoint supportive care at this time GTFs per dietary, pt tolerating GT site care daily/prn Prevacid GT daily bowel regime monitor H&H, prn transfusions electrolyte replacement fu labs Subjective Subjective limited Objective Last 24 Hour Vital Signs Date Time Temp Pulse Resp B/P (MAP) Pulse Ox O2 Delivery O2 Flow Rate FiO2 08/06/17 09:17 54 137/78 08/06/17 08:00 97.7 96 19 113/66 93 Nasal Cannula 3.0 08/06/17 04:00 97.5 55 20 129/74 100 Room Air 08/05/17 23:14 97.2 50 18 96/65 98 Room Air 08/05/17 20:51 97.9 55 18 112/71 97 Room Air 08/05/17 15:34 98.6 70 20 134/78 98 Room Air Height (Feet): 5 Height (Inches): 8.00 Weight (Pounds): 125 General Appearance: no apparent distress, alert Cardiovascular: normal rate Respiratory/Chest: normal breath sounds, no respiratory distress Abdominal Exam: normal bowel sounds, non tender, soft, GT site - C/D/I Jennifer Chavez N.P. Aug 06, 2017 13:18
[2017-08-06 16:00] VITALS: BP 123/75
--- NOTE | 2017-08-06 21:28 | Pulmonology Progress Note ---
Assessment/Plan Problems: (1) Altered mental status (2) Protein-calorie malnutrition, severe (3) Hypothyroid (4) UTI (urinary tract infection) (5) Acute encephalopathy (6) Abdominal pain (7) Cerebrovascular accident (CVA) Assessment/Plan stable family agreed with hospice care Subjective ROS Limited/Unobtainable: No Constitutional: Reports: no symptoms HEENT: Repors: no symptoms Respiratory: Reports: no symptoms Allergies: Coded Allergies: No Known Allergies (Unverified , 04/28/17) Objective Last 24 Hour Vital Signs Date Time Temp Pulse Resp B/P (MAP) Pulse Ox O2 Delivery O2 Flow Rate FiO2 08/06/17 16:00 97.9 62 20 123/75 98 Room Air 08/06/17 12:00 97.9 99 20 143/85 99 Room Air 08/06/17 09:17 54 137/78 08/06/17 08:00 97.7 96 19 113/66 93 Nasal Cannula 3.0 08/06/17 04:00 97.5 55 20 129/74 100 Room Air 08/05/17 23:14 97.2 50 18 96/65 98 Room Air Intake and Output 08/06/17 08/07/17 19:00 07:00 Intake Total 595 ml Output Total 650 ml Balance -55 ml Intake Free Water 100 ml Tube Feeding 495 ml Output Urine Total 650 ml General Appearance: WD/WN HEENT: normocephalic, atraumatic Respiratory/Chest: chest wall non-tender, lungs clear Cardiovascular: normal peripheral pulses, normal rate Abdomen: normal bowel sounds, soft, non tender Extremities: no cyanosis Skin: no lesions Neurologic/Psychiatric: foreign legal consultant II-XII grossly normal Current Medications Medications (Trade) Dose Ordered Sig/Kendy Route PRN Reason Start Time Stop Time Status Last Admin Dose Admin Acetaminophen (Tylenol) 650 mg Q4H PRN ORAL fever 07/31/17 21:45 08/30/17 21:44 Al Hydroxide/Mg Hydroxide (Mylanta II) 30 ml Q6H PRN ORAL dyspepsia 07/31/17 21:45 08/30/17 21:44 Amlodipine Besylate (Norvasc) 5 mg DAILY ORAL 08/03/17 18:00 09/02/17 17:59 08/06/17 09:17 Dextrose (Dextrose 50%) STAT PRN IV Hypoglycemia 07/31/17 21:45 11/9/17 21:44 Docusate Sodium (Colace) 100 mg TWICE A DAY GT 08/01/17 18:00 08/31/17 17:59 08/06/17 09:18 Heparin Sodium (Porcine) (Heparin 5000 units/ml) 5,000 units EVERY 12 HOURS SUBQ 08/01/17 09:00 08/31/17 08:59 08/06/17 09:24 Lansoprazole (Prevacid) 30 mg DAILY GT 08/02/17 09:00 09/01/17 08:59 08/06/17 09:16 Levetiracetam (Keppra) 500 mg BID GT 08/01/17 09:00 08/31/17 08:59 08/06/17 09:18 Lorazepam (Ativan 2mg/ml 1ml) 0.5 mg Q4H PRN IM For Anxiety 08/05/17 10:30 08/12/17 10:29 08/05/17 15:27 Morphine Sulfate (Morphine Sulfate) 2 mg Q4H PRN SUBQ For Pain 4-6 08/05/17 10:00 08/12/17 09:59 08/06/17 17:30 Morphine Sulfate (Morphine Sulfate) 4 mg Q4H PRN SUBQ For Pain 7-10 08/05/17 10:00 08/12/17 09:59 08/05/17 16:12 Ondansetron HCl (Zofran) 4 mg Q4H PRN ORAL Nausea & Vomiting 07/31/17 21:45 08/30/17 21:44 Ondansetron HCl (Zofran) 4 mg Q6H PRN IVP Nausea & Vomiting 07/31/17 21:45 08/30/17 21:44 Piperacillin Sod/ Tazobactam Sod 3.375 gm/Sodium Chloride 110 ml @ 27.5 mls/hr EVERY 8 HOURS IVPB 08/01/17 00:00 08/08/17 00:00 08/06/17 14:30 Polyethylene Glycol (Miralax) 17 gm BEDTIME GT 08/01/17 21:00 08/31/17 20:59 08/04/17 21:00 Polyethylene Glycol (Miralax) 17 gm HSPRN PRN ORAL Constipation 07/31/17 21:45 08/30/17 21:44 Quetiapine Fumarate (SEROquel) 50 mg DAILY ORAL 08/01/17 09:00 08/31/17 08:59 08/06/17 09:16 Tramadol HCl (Ultram) 50 mg Q6H PRN ORAL For Moderate Pain 07/31/17 21:45 08/07/17 21:44 Zolpidem Tartrate (Ambien) 5 mg HSPRN PRN ORAL Insomnia 07/31/17 21:45 08/07/17 21:44 JANIS DYKES Aug 06, 2017 21:28
--- NOTE | 2017-08-07 12:13 | Discharge Summary ---
Discharge Summary Hospital Course Date of Admission Aug 03, 2017 at 12:51 Date of Discharge Aug 06, 2017 at 19:30 Admitting Diagnosis intractable abdominal pain MARCELLA Merritt is a 57 year old female who was admitted on Aug 03, 2017 at 12: 51 for Intractable Abdominal Pain Hospital Course dc summary #[id number] Discharge Medications Continued Medications: Acetaminophen* (Acetaminophen 325MG Tablet*) 325 Mg Tablet 325 MG ORAL Q4H PRN for Mild Pain (Pain Scale 1-3), TAB Hydrocodone Bit/Acetaminophen 5-325* ([place] 5-325*) 1 Each Tablet 1 TAB ORAL Q8HR PRN for For Pain, #10 TAB 0 Refills Levetiracetam* (Levetiracetam*) 100 Mg/1 Ml Solution 500 MG GT BID Lorazepam* (Ativan*) 1 Mg Tablet 1 MG ORAL Q4HR, TAB Ondansetron* (Zofran*) 4 Mg Tablet 4 MG ORAL Q4HR PRN for Nausea & Vomiting, TAB Quetiapine Fumarate* (Seroquel*) 25 Mg Tablet 50 MG ORAL DAILY, TAB Tramadol Hcl* (Ultram*) 50 Mg Tablet 50 MG ORAL Q6H PRN for For Pain, #30 TAB 0 Refills Discharge Discharge Disposition Patient was discharged home with hospice services Discharge Diagnoses: Farzad (Mame)Jenny NP Aug 07, 2017 12:13
--- NOTE | 2017-08-08 08:31 | Discharge Summary ---
DATE OF ADMISSION: 08/03/2017 DATE OF DISCHARGE: 08/06/2017 REASON FOR ADMISSION: 57-year-old female with known history of ovarian cancer, presented with diffuse abdominal pain. The patient by herself was unable to provide any history. Reportedly, the patient received pain medication prior to arrival and appeared somewhat disoriented and confused. There was no reported fever or chills. Past medical history also includes hypertension, non-STEMI, G-tube, major depression, CVA with right-sided hemiplegia, and seizure disorder. Upon evaluation, vital signs were stable. Urinalysis revealed evidence of UTI. The patient was admitted for altered mental status, urinary tract infection, and management of abdominal pain. HOSPITAL STAY: The patient was admitted. Pain specialist and GI specialist were consulted. The patient was on empiric antibiotics. Urine culture grew Pseudomonas and Klebsiella. The patient status post treatment with antibiotics. Blood culture revealed Staph, coag-negative, one out of the four, likely contaminant. The patient was afebrile. No leukocytosis. Treatment stopped. Antibiotics stopped. Pain management provided. Pain specialist followed. Pain was likely secondary to malignancy. GI closely followed. Strict aspiration precautions were maintained. Supportive care provided. G-tube feeding was tolerated by the patient. Rate was increased as per GI recommendation. G-tube site care provided daily and as needed. PPI started. Bowel regimen instituted. Hemoglobin and hematocrit were closely monitored and remained on the baseline. Electrolytes were closely monitored. Seizure precautions were maintained. The patient was continued on Keppra. DVT and GI prophylaxes were provided. PT and OT therapy was initiated. Altered mental status was secondary to acute encephalopathy, likely combination of infection and malignancy. GI cleared the patient for discharge. Family decided on hospice care. Hospice evaluation was done. The patient was discharged home with hospice services. FINAL DIAGNOSES: 1. Acute encephalopathy (likely due to cancer, pain, and infection). 2. Abdominal pain (likely secondary to malignancy). 3. Urinary tract infection with Klebsiella. 4. Ovarian cancer. 5. Seizure disorder. 6. History of cerebrovascular accident with right hemiplegia. 7. Dysphagia with gastrostomy tube. 8. Colonic pain syndrome. 9. Depression. DISCHARGE MEDICATIONS: See medication reconciliation list. DISCHARGE INSTRUCTIONS: The patient was discharged home with hospice services. Neda Dalton M.D. Jenny SweeneyLily prado DR: ANEESH JOB#: [id number] CC: BELA
== END 2017-08-06 19:30 | DRG 861 ==
LOC: EDBD 19:07 → EMR 19:40 → EDBEDREQ 22:12 → 4E 22:22 → UNDOADMOB 22:22 → 4E 22:23 → UNDOADMOB 22:23 → 4E 22:24 → OBSVTOIN 22:24 → EDBEDREQ 23:34 → 4E 08-01 00:53 → 4W 08-01 05:48 → 4E 08-01 05:48 → 4W 08-01 16:12 → OBSVTOIN 08-03 12:51 → INTOOBSV 08-03 12:51 → UNDODISIN 08-06 19:30
DX: G89.3 Neoplasm related pain (acute) (chronic) (principal); E43 Unspecified severe protein-calorie malnutrition; G93.49 Other encephalopathy; C56.9 Malignant neoplasm of unspecified ovary; I10 Essential (primary) hypertension; B96.1 Klebsiella pneumoniae [K. pneumoniae] as the cause of diseases classified elsewhere; R13.10 Dysphagia, unspecified; I69.351 Hemiplegia and hemiparesis following cerebral infarction affecting right dominant side; N39.0 Urinary tract infection, site not specified; E03.9 Hypothyroidism, unspecified; K21.9 Gastro-esophageal reflux disease without esophagitis; I25.2 Old myocardial infarction; G40.909 Epilepsy, unspecified, not intractable, without status epilepticus; R10.9 Unspecified abdominal pain; F32.9 Major depressive disorder, single episode, unspecified; Z43.1 Encounter for attention to gastrostomy; Z68.1 Body mass index [BMI] 19.9 or less, adult; Z23 Encounter for immunization
CPT/HCPCS: 36415; 51702; 80048; 80053; 81003; 82962; 83690; 83735; 84100; 84443; 85025; 87040; 87081; 87086; 87181; 90630; 99285